=== PATIENT | female | born 1960 | race Caucasian/White ===

== ENCOUNTER 2016-03-03 12:42 | Emergency (ER) | payer BC, OTHER ==
[~2016-03-03 12:42] MED LIST: /BUDEAQINH; /PANT40TA PO; ADV500INH INH; ALBUTEROL NEB; CYMB60CA3 PO; LEVALBUTEROL NEB; MOTRIN PO; VICO5TAB PO; fish oil PO; multivitamin PO; relafen PO; singulair PO; vitamin D PO; zyrtec PO
[2016-03-03] MEDS ORDERED: ACETAMINOPHEN 325 MG TAB As Ordered ONE (13:33)
--- NOTE | 2016-03-03 14:03 | REP ---
4 view right knee series, 03/03/16 Indication: trauma Findings: The lateral view of the right knee was obtained in the flexion. There is mild genu varus deformity. Bony exostosis is noted off the medial aspect of the proximal fibular shaft consistent with osteochondroma. The joint spaces are maintained. There is no acute fracture or dislocation. Impression 1. No acute fracture or dislocation within the right knee. Mild genu varus deformity 2. Bony exostosis of the medial superior fibular shaft is most compatible with an osteochondroma . I Signed by Chacha Davis MD 03/03/2016 01:54 P
--- NOTE | 2016-03-03 14:12 | REP ---
RIGHT ANKLE SERIES, FOUR VIEW EXAM, 03/03/2016: FINDINGS: Transversely oriented avulsion fracture noted of the inferior aspect of the medial malleolus with some callus formation, indicating that this may be a subacute to old fracture with nonunion. There is some benign callus formation within the distal fibular shaft, most compatible with an old healed fracture. There are some dystrophic round calcifications in the medial mortise joint and a single corticated 6 mm calcific fragment in the posterior ankle joint. There is a small plantar calcaneal spur. IMPRESSION: Transverse avulsion fracture of the inferior malleolus appears subacute to old with some callus formation and nonunion. Additionally, there is some benign cortical thickening within the distal fibular shaft, most compatible with an old healed fracture. Small round dystrophic calcifications or intra-articular loose bodies within the medial mortise joint and the posterior ankle joint. Signed by Chacha Davis MD 03/04/2016 07:46 P
--- NOTE | 2016-03-03 14:31 | EDDOCDS ---
Nurse's Notes [facility] Name: Elsie Benjamin Age: 55 yrs Sex: Female : 1960 Arrival Date: 03/03/2016 Time: 12:42 Bed I10 / 23 Private MD: Azael Patel Diagnosis: Fall on same level from slipping, tripping and stumbling with subsequent striking against object;Other specific joint derangements of right ankle, not elsewhere classified;Contusion of right shoulder Presentation: 03/03 12:47 Presenting complaint: Patient states: stepped onto TV cord causing her to twist right dy ankle then land on right side. complaining of right side pain. Adult Sepsis Screening: The patient does not have new or worsening altered mentation. Patient's respiratory rate is less than 22. Systolic blood pressure is greater than 100. Patient has a qSOFA score of 0- Negative Sepsis Screen. Suicide/Homicide risk assessment- the patient denies having any suicidal and/or homicidal ideations and does not present with any other emotional, behavioral or mental health complaints. Status: Patient is not a director of cardiopulmonary services or dependent. Transition of care: patient was not received from another setting of care. 12:47 Acuity: NA Level 4 dy 12:47 Method Of Arrival: Walkin/Carried/Asstd dy Triage Assessment: 12:53 General: Appears uncomfortable. Pain: Location: right side of body; right ankle. HIV dy screening NA for this visit Offered previously. Musculoskeletal: Circulation, motion, and sensation intact. 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 Vitamin B-12 1,000 mcg Oral lozg 2. multivitamin Oral tab 1 tablet daily 3. Fish Oil 1,000 mg Oral cap 4. Vitamin D Oral 5000 unit daily 5. Calcium Petites 200 (500)-400 mg-unit oral cap 6. Advair Diskus 250-50 mcg/dose Inhl dsdv 1 puff 2 times per day 7. QNASL 80 mcg/actuation nasal HFAA 2 sprays once daily 8. Cymbalta 60 mg Oral cpDR 1 cap nightly 9. Protonix 40 mg Oral TbEC 1 tab once daily 10. Singulair 10 mg Oral tab 1 tab once daily 11. Zyrtec 10 mg Oral tab 1 tab once daily 12. magnesium 400 mg oral tab twice a day 13. cefdinir 300 mg Oral cap 1 cap every 12 hours 14. Mucinex 600 mg oral Ta12 1 tab every 12 hours - PMHx: Alcoholism; Asthma; chronic pain; - PSHx: Cholecystectomy; Tubal ligation; Breast biopsy- Right; Sinus Surgery; Adenoidectomy; Cesearean Section; Hysterectomy; Gastric Bypass; - Social history: Smoking status: Patient states was never smoker of tobacco. No barriers to communication noted, The patient speaks fluent Spanish, Speaks appropriately for age. - Family history: Not pertinent. - : The pt / caregiver states he / she is not on anticoagulants. Home medication list is obtained from the patient. - Exposure Risk Screening:: None identified. Screenin:43 Infection Control. cmb 13:38 Screening information is obtained from the patient. Fall risk: No risks identified. ck1 Assistance ADL's: requires no assistance with activities of daily living. Abuse/DV Screen: The patient / caregiver reports he/she is: not in a situation that causes fear, pain or injury. Nutritional screening: No deficits noted. Advance Directives: Currently, there is no health care proxy. home support is adequate. Assessment: 13:37 General: Appears in no apparent distress, comfortable, Behavior is appropriate for age, ck1 cooperative. Pain: Location: right ankle Pain currently is 4 out of 10 on a pain scale. Derm: Skin is intact, is healthy with good turgor, Skin is pink, warm & dry. Musculoskeletal: Circulation, motion, and sensation intact Range of motion intact in all extremities. 14:25 General: Appears in no apparent distress, Behavior is appropriate for age, cooperative. srm Musculoskeletal: Circulation, motion, and sensation intact Capillary refill < 3 seconds in right toes. Vital Signs: 12:43 Pulse 75; Resp 18; Temp 98.5(O); Pulse Ox 98% ; Weight 98.88 kg (R); Height 5 ft. 2 in. cmb (157.48 cm) (R); Pain 5/10; 14:26 BP 117 / 79; Pulse 75; Resp 18; Temp 97.9(O); Pulse Ox 97% on R/A; Pain 5/10; jrd 12:43 Body Mass Index 39.87 (98.88 kg, 157.48 cm) cmb 12:43 PT REQUEST MANUAL BP cmb Vitals: 12:43 Log In Time: March 03, 2016 at 12:37. cmb ED Course: 12:43 Patient visited by Racheal Trammell. cmb 12:43 Azael Patel MD is Private Physician. cmb 12:43 Patient moved to Waiting cmb 12:46 Patient moved to Pre RCE cmb 12:48 Triage Initiated dy 13:02 Tyrell Castañeda FNP is PHCP. ke 13:02 Patient visited by Tyrell Castañeda FNP. ke 13:02 Patient visited by Tyrell Castañeda FNP. ke 13:02 Patient moved to Triage 1 rs6 13:10 Patient moved to I10 / 23 rs6 13:33 Patient visited by Tyrell Castañeda FNP. ke 13:38 The patient / caregiver is instructed regarding the plan of care and ED course. ck1 14:02 Azael Patel MD is Referral Physician. ke 14:11 Knee, Complete Returned. EDMS 14:25 No IV's were initiated during this patient's visit. No procedures done that require srm assistance. Air stirrup applied to right ankle Patient with positive distal sensation and brisk distal capillary refill after application. 14:26 Patient visited by Sukh Beckham PCA. yokasta Administered Medications: 13:37 Drug: Acetaminophen 975 mg [acetaminophen 325 mg tablet (3 tabs)] Route: PO; ck1 Order Results: Radiology Order: Knee, Complete Test: Knee, Complete REASON FOR EXAMINATION: Trauma; 4 view right knee series, 03/03/16; ; Indication: trauma; ; ; ; Findings:; ; The lateral view of the right knee was obtained in the flexion. There is mild; genu varus deformity. Bony exostosis is noted off the medial aspect of the; proximal fibular shaft consistent with osteochondroma. The joint spaces are; maintained. There is no acute fracture or dislocation.; ; Impression; 1. No acute fracture or dislocation within the right knee. Mild genu varus; deformity; 2. Bony exostosis of the medial superior fibular shaft is most compatible with; an osteochondroma .; ; I; ; ; Signed by; Chacha Davis MD 03/03/2016 01:54 P; Outcome: 14:03 Discharge ordered by Provider. nakia 14:25 Discharge Assessment: Patient awake, alert and oriented x 3. No cognitive and/or srm functional deficits noted. Patient verbalized understanding of disposition instructions. 14:26 Discharge Assessment: Patient awake, alert and oriented x 3. No cognitive and/or srm functional deficits noted. Patient verbalized understanding of disposition instructions. patient administered narcotics - no. The following High Risk Discharge criteria are identified: None. Discharged to home ambulatory. Condition: good Condition: stable. Discharge instructions given to patient, Instructed on discharge instructions, follow up and referral plans. Rest, Ice, Compression and Elevation. Demonstrated understanding of instructions, medications, Pt was receptive of discharge instructions/ teaching. Work note provided to patient. No special radiology studies were completed. Property sent home with patient. 14:29 Patient left the ED. srm Signatures: Dispatcher [employer] EDAnika Erickson RN RN srm Youngs, David, RN Tyrell Eckert, SAP PROJECT MANAGER SAP PROJECT MANAGER Megan ValdovinosRN RN Racheal Ham Joseph, MOTOR TUNE UP SPECIALIST MOTOR TUNE UP SPECIALIST jrd Latia Welch, MOTOR TUNE UP SPECIALIST MOTOR TUNE UP SPECIALIST rs6 RENAN
--- NOTE | 2016-03-03 14:31 | EDDOCDS ---
Physician Documentation [facility] Name: Elsie Benjamin Age: 55 yrs Sex: Female : 1960 Arrival Date: 03/03/2016 Time: 12:42 Bed I10 / 23 Private MD: Azael Patel Disposition: 03/03/16 14:03 Discharged to Home/Self Care. Impression: Fall on same level from slipping, tripping and stumbling with subsequent striking against object, Other specific joint derangements of right ankle, not elsewhere classified, Contusion of right shoulder. - Condition is Stable. - Discharge Instructions: Ankle Sprain, Shoulder Pain, Stirrup Ankle Brace. - Medication Reconciliation, Work Release Form - 1 day, Local Pharmacy Hours form. - Follow up: Azael Patel MD; When: 4 - 5 days; Reason: Recheck today's complaints, Continuance of care. - Problem is an ongoing problem. - Symptoms are unchanged. - Notes: ice 20 min an hour Historical: - Allergies: SULFA (SULFONAMIDES); Afrin; Marcaine 0.5%; Soy; Latex; - Home Meds: 1. Vitamin B-12 1,000 mcg Oral lozg 2. multivitamin Oral tab 1 tablet daily 3. Fish Oil 1,000 mg Oral cap 4. Vitamin D Oral 5000 unit daily 5. Calcium Petites 200 (500)-400 mg-unit oral cap 6. Advair Diskus 250-50 mcg/dose Inhl dsdv 1 puff 2 times per day 7. QNASL 80 mcg/actuation nasal HFAA 2 sprays once daily 8. Cymbalta 60 mg Oral cpDR 1 cap nightly 9. Protonix 40 mg Oral TbEC 1 tab once daily 10. Singulair 10 mg Oral tab 1 tab once daily 11. Zyrtec 10 mg Oral tab 1 tab once daily 12. magnesium 400 mg oral tab twice a day 13. cefdinir 300 mg Oral cap 1 cap every 12 hours 14. Mucinex 600 mg oral Ta12 1 tab every 12 hours - PMHx: Alcoholism; Asthma; chronic pain; - PSHx: Cholecystectomy; Tubal ligation; Breast biopsy- Right; Sinus Surgery; Adenoidectomy; Cesearean Section; Hysterectomy; Gastric Bypass; - Social history: Smoking status: Patient states was never smoker of tobacco. No barriers to communication noted, The patient speaks fluent Urdu, Speaks appropriately for age. - Family history: Not pertinent. - : The pt / caregiver states he / she is not on anticoagulants. Home medication list is obtained from the patient. - Exposure Risk Screening:: None identified. 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 2 in. (157.48 cm) (R); Pain 5/10; 14:26 BP 117 / 79; Pulse 75; Resp 18; Temp 97.9(O); Pulse Ox 97% on R/A; Pain 5/10; jrd 12:43 Body Mass Index 39.87 (98.88 kg, 157.48 cm) cmb 12:43 PT REQUEST MANUAL BP cmb MDM: 13:10 Acetaminophen Tablet 975 mg PO once ordered. ke 13:10 Ankle, Complete Ordered. EDMS 13:12 Shoulder, Complete Ordered. EDMS 13:12 Knee, Complete Ordered. EDMS 13:36 Financial registration complete. lg 14:02 Apply Air Cast to Patient. ordered. ke Administered Medications: 13:37 Drug: Acetaminophen 975 mg [acetaminophen 325 mg tablet (3 tabs)] Route: PO; ck1 Signatures: Dispatcher [employer] EDMS Anika Cruz, RN Dahiana Torres, Reg Reg Nasir Acosta RN Tyrell Eckert, HOT AIR FURNACE INSTALLER AND REPAIRER HOT AIR FURNACE INSTALLER AND REPAIRER Megan Valdovinos RN RN ck1 MTDD
--- NOTE | 2016-03-04 17:14 | REP ---
Three-view right shoulder series one 03/03/16 Indication: Trauma Findings: Mild hypertrophic changes are noted at acromioclavicular joint. There is a small subacromial spur. There is no acute fracture, subluxation, or dislocation within the right shoulder. Visualized portions of the clavicle as well as scapula are intact. Impression: Right shoulder without acute fracture, subluxation, or dislocation. Mild hypertrophic changes at acromioclavicular joint. Small subacromial spur. Signed by Chacha Davis MD 03/04/2016 05:06 P
--- NOTE | 2016-03-05 15:30 | EDDOCDS ---
Nurse's Notes [facility] Name: lEsie Benjamin Age: 55 yrs Sex: Female : 1960 Arrival Date: 03/03/2016 Time: 12:42 Bed I10 / 23 Private MD: Azael Patel Diagnosis: Fall on same level from slipping, tripping and stumbling with subsequent striking against object;Other specific joint derangements of right ankle, not elsewhere classified;Contusion of right shoulder Presentation: 03/03 12:47 Presenting complaint: Patient states: stepped onto TV cord causing her to twist right dy ankle then land on right side. complaining of right side pain. Adult Sepsis Screening: The patient does not have new or worsening altered mentation. Patient's respiratory rate is less than 22. Systolic blood pressure is greater than 100. Patient has a qSOFA score of 0- Negative Sepsis Screen. Suicide/Homicide risk assessment- the patient denies having any suicidal and/or homicidal ideations and does not present with any other emotional, behavioral or mental health complaints. 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 Transition of care: patient was not received from another setting of care. 12:47 Acuity: NA Level 4 dy 12:47 Method Of Arrival: Walkin/Carried/Asstd dy Triage Assessment: 12:53 General: Appears uncomfortable. Pain: Location: right side of body; right ankle. HIV dy screening NA for this visit Offered previously. Musculoskeletal: Circulation, motion, and sensation intact. 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 Vitamin B-12 1,000 mcg Oral lozg 2. multivitamin Oral tab 1 tablet daily 3. Fish Oil 1,000 mg Oral cap 4. Vitamin D Oral 5000 unit daily 5. Calcium Petites 200 (500)-400 mg-unit oral cap 6. Advair Diskus 250-50 mcg/dose Inhl dsdv 1 puff 2 times per day 7. QNASL 80 mcg/actuation nasal HFAA 2 sprays once daily 8. Cymbalta 60 mg Oral cpDR 1 cap nightly 9. Protonix 40 mg Oral TbEC 1 tab once daily 10. Singulair 10 mg Oral tab 1 tab once daily 11. Zyrtec 10 mg Oral tab 1 tab once daily 12. magnesium 400 mg oral tab twice a day 13. cefdinir 300 mg Oral cap 1 cap every 12 hours 14. Mucinex 600 mg oral Ta12 1 tab every 12 hours - PMHx: Alcoholism; Asthma; chronic pain; - PSHx: Cholecystectomy; Tubal ligation; Breast biopsy- Right; Sinus Surgery; Adenoidectomy; Cesearean Section; Hysterectomy; Gastric Bypass; - Social history: Smoking status: Patient states was never smoker of tobacco. No barriers to communication noted, The patient speaks fluent British, Speaks appropriately for age. - Family history: Not pertinent. - : The pt / caregiver states he / she is not on anticoagulants. Home medication list is obtained from the patient. - Exposure Risk Screening:: None identified. Screenin:43 Infection Control. cmb 13:38 Screening information is obtained from the patient. Fall risk: No risks identified. ck1 Assistance ADL's: requires no assistance with activities of daily living. Abuse/DV Screen: The patient / caregiver reports he/she is: not in a situation that causes fear, pain or injury. Nutritional screening: No deficits noted. Advance Directives: Currently, there is no health care proxy. home support is adequate. Assessment: 13:37 General: Appears in no apparent distress, comfortable, Behavior is appropriate for age, ck1 cooperative. Pain: Location: right ankle Pain currently is 4 out of 10 on a pain scale. Derm: Skin is intact, is healthy with good turgor, Skin is pink, warm & dry. Musculoskeletal: Circulation, motion, and sensation intact Range of motion intact in all extremities. 14:25 General: Appears in no apparent distress, Behavior is appropriate for age, cooperative. srm Musculoskeletal: Circulation, motion, and sensation intact Capillary refill < 3 seconds in right toes. Vital Signs: 12:43 Pulse 75; Resp 18; Temp 98.5(O); Pulse Ox 98% ; Weight 98.88 kg (R); Height 5 ft. 2 in. cmb (157.48 cm) (R); Pain 5/10; 14:26 BP 117 / 79; Pulse 75; Resp 18; Temp 97.9(O); Pulse Ox 97% on R/A; Pain 5/10; jrd 12:43 Body Mass Index 39.87 (98.88 kg, 157.48 cm) cmb 12:43 PT REQUEST MANUAL BP cmb Vitals: 12:43 Log In Time: March 03, 2016 at 12:37. cmb ED Course: 12:43 Patient visited by Racheal Trammell. cmb 12:43 Azael Patel MD is Private Physician. cmb 12:43 Patient moved to Waiting cmb 12:46 Patient moved to Pre RCE cmb 12:48 Triage Initiated dy 13:02 Tyrell Castañeda FNP is PHCP. ke 13:02 Patient visited by Tyrell Castañeda FNP. ke 13:02 Patient visited by Tyrell Castañeda FNP. ke 13:02 Patient moved to Triage 1 rs6 13:10 Patient moved to I10 / 23 rs6 13:33 Patient visited by Tyrell Castañeda FNP. ke 13:38 The patient / caregiver is instructed regarding the plan of care and ED course. ck1 14:02 Azael Patel MD is Referral Physician. ke 14:11 Knee, Complete Returned. EDMS 14:25 No IV's were initiated during this patient's visit. No procedures done that require srm assistance. Air stirrup applied to right ankle Patient with positive distal sensation and brisk distal capillary refill after application. 14:26 Patient visited by Sukh Beckham PCA. jrd 15:10 Ankle, Complete Returned. EDMS 15:13 [facility] Payment Agreement was scanned into [employer] and attached to record. lg 15:15 T-Sheet-- Draft Copy was scanned into [employer] and attached to record. gb 03/04 17:33 Shoulder, Complete Returned. EDMS Administered Medications: 03/03 13:37 Drug: Acetaminophen 975 mg [acetaminophen 325 mg tablet (3 tabs)] Route: PO; ck1 Order Results: Radiology Order: Ankle, Complete Test: Ankle, Complete REASON FOR EXAMINATION: Trauma; RIGHT ANKLE SERIES, FOUR VIEW EXAM, 03/03/2016:; ; FINDINGS: Transversely oriented avulsion fracture noted of the inferior aspect; of the medial malleolus with some callus formation, indicating that this may be a; subacute to old fracture with nonunion. There is some benign callus formation; within the distal fibular shaft, most compatible with an old healed fracture.; There are some dystrophic round calcifications in the medial mortise joint and a; single corticated 6 mm calcific fragment in the posterior ankle joint. There is; a small plantar calcaneal spur.; ; IMPRESSION:; ; Transverse avulsion fracture of the inferior malleolus appears subacute to old; with some callus formation and nonunion. Additionally, there is some benign; cortical thickening within the distal fibular shaft, most compatible with an old; healed fracture.; ; Small round dystrophic calcifications or intra-articular loose bodies within the; medial mortise joint and the posterior ankle joint.; ; ; Signed by; Chacha Davis MD 03/04/2016 07:46 P; Radiology Order: Shoulder, Complete Test: Shoulder, Complete REASON FOR EXAMINATION: Trauma; Three-view right shoulder series one 03/03/16; ; Indication: Trauma; ; Findings: Mild hypertrophic changes are noted at acromioclavicular joint. There; is a small subacromial spur. There is no acute fracture, subluxation, or; dislocation within the right shoulder. Visualized portions of the clavicle as; well as scapula are intact.; ; Impression:; ; Right shoulder without acute fracture, subluxation, or dislocation.; ; Mild hypertrophic changes at acromioclavicular joint. Small subacromial spur.; ; ; ; ; ; ; Signed by; Chacha Davis MD 03/04/2016 05:06 P; Radiology Order: Knee, Complete Test: Knee, Complete REASON FOR EXAMINATION: Trauma; 4 view right knee series, 03/03/16; ; Indication: trauma; ; ; ; Findings:; ; The lateral view of the right knee was obtained in the flexion. There is mild; genu varus deformity. Bony exostosis is noted off the medial aspect of the; proximal fibular shaft consistent with osteochondroma. The joint spaces are; maintained. There is no acute fracture or dislocation.; ; Impression; 1. No acute fracture or dislocation within the right knee. Mild genu varus; deformity; 2. Bony exostosis of the medial superior fibular shaft is most compatible with; an osteochondroma .; ; I; ; ; Signed by; Chacha Davis MD 03/03/2016 01:54 P; Outcome: 14:03 Discharge ordered by Provider. nakia 14:25 Discharge Assessment: Patient awake, alert and oriented x 3. No cognitive and/or srm functional deficits noted. Patient verbalized understanding of disposition instructions. 14:26 Discharge Assessment: Patient awake, alert and oriented x 3. No cognitive and/or srm functional deficits noted. Patient verbalized understanding of disposition instructions. patient administered narcotics - no. The following High Risk Discharge criteria are identified: None. Discharged to home ambulatory. Condition: good Condition: stable. Discharge instructions given to patient, Instructed on discharge instructions, follow up and referral plans. Rest, Ice, Compression and Elevation. Demonstrated understanding of instructions, medications, Pt was receptive of discharge instructions/ teaching. Work note provided to patient. No special radiology studies were completed. Property sent home with patient. 14:29 Patient left the ED. srm Signatures: Dispatcher [employer] EDMS Anika Cruz, RN RN srm Loyda Kendrick, Reg Reg gb Dahiana Downing, Reg Reg lg Nasir Kimble, RN Tyrell Eckert, COLON AND RECTAL SURGEON COLON AND RECTAL SURGEON Megan Valdovinos RN RN ck1 Racheal Trammell cmSukh Jacbo, TAX PROCESSOR TAX PROCESSOR jrd Latia Welch, TAX PROCESSOR TAX PROCESSOR rs6 Chart Complete MTDAlissa
--- NOTE | 2016-03-05 15:30 | EDDOCDS ---
Physician Documentation [facility] Name: Elsie Benjamin Age: 55 yrs Sex: Female : 1960 Arrival Date: 03/03/2016 Time: 12:42 Bed I10 / 23 Private MD: Azael Patel Disposition: 03/03/16 14:03 Discharged to Home/Self Care. Impression: Fall on same level from slipping, tripping and stumbling with subsequent striking against object, Other specific joint derangements of right ankle, not elsewhere classified, Contusion of right shoulder. - Condition is Stable. - Discharge Instructions: Ankle Sprain, Shoulder Pain, Stirrup Ankle Brace. - Medication Reconciliation, Work Release Form - 1 day, Local Pharmacy Hours form. - Follow up: Azael Patel MD; When: 4 - 5 days; Reason: Recheck today's complaints, Continuance of care. - Problem is an ongoing problem. - Symptoms are unchanged. - Notes: ice 20 min an hour Historical: - Allergies: SULFA (SULFONAMIDES); Afrin; Marcaine 0.5%; Soy; Latex; - Home Meds: 1. Vitamin B-12 1,000 mcg Oral lozg 2. multivitamin Oral tab 1 tablet daily 3. Fish Oil 1,000 mg Oral cap 4. Vitamin D Oral 5000 unit daily 5. Calcium Petites 200 (500)-400 mg-unit oral cap 6. Advair Diskus 250-50 mcg/dose Inhl dsdv 1 puff 2 times per day 7. QNASL 80 mcg/actuation nasal HFAA 2 sprays once daily 8. Cymbalta 60 mg Oral cpDR 1 cap nightly 9. Protonix 40 mg Oral TbEC 1 tab once daily 10. Singulair 10 mg Oral tab 1 tab once daily 11. Zyrtec 10 mg Oral tab 1 tab once daily 12. magnesium 400 mg oral tab twice a day 13. cefdinir 300 mg Oral cap 1 cap every 12 hours 14. Mucinex 600 mg oral Ta12 1 tab every 12 hours - PMHx: Alcoholism; Asthma; chronic pain; - PSHx: Cholecystectomy; Tubal ligation; Breast biopsy- Right; Sinus Surgery; Adenoidectomy; Cesearean Section; Hysterectomy; Gastric Bypass; - Social history: Smoking status: Patient states was never smoker of tobacco. No barriers to communication noted, The patient speaks fluent Lao, Speaks appropriately for age. - Family history: Not pertinent. - : The pt / caregiver states he / she is not on anticoagulants. Home medication list is obtained from the patient. - Exposure Risk Screening:: None identified. 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 2 in. (157.48 cm) (R); Pain 5/10; 14:26 BP 117 / 79; Pulse 75; Resp 18; Temp 97.9(O); Pulse Ox 97% on R/A; Pain 5/10; jrd 12:43 Body Mass Index 39.87 (98.88 kg, 157.48 cm) cmb 12:43 PT REQUEST MANUAL BP cmb MDM: 13:10 Acetaminophen Tablet 975 mg PO once ordered. ke 13:10 Ankle, Complete Ordered. EDMS 13:12 Shoulder, Complete Ordered. EDMS 13:12 Knee, Complete Ordered. EDMS 13:36 Financial registration complete. lg 14:02 Apply Air Cast to Patient. ordered. ke 15:13 [facility] Payment Agreement was scanned into [employer] and attached to record. lg 15:15 T-Sheet-- Draft Copy was scanned into [employer] and attached to record. gb Administered Medications: 13:37 Drug: Acetaminophen 975 mg [acetaminophen 325 mg tablet (3 tabs)] Route: PO; ck1 Signatures: Dispatcher MedHost EDMS Anika Cruz, RN RN [facility] Loyda Kendrick, Reg Reg gb Dahiana Downing, Reg Reg lg Nasir Kimble RN RN dy Elsner, Karl, FNP FNP ke Kim-Ashcraft, ConnieRN RN ck1 The chart was reviewed and I authenticate all verbal orders and agree with the evaluation and treatment provided.Attachments: 15:13 [facility] Payment Agreement lg 15:15 T-Sheet-- Draft Copy gb Chart Complete MTDD
--- NOTE | 2016-03-05 15:30 | EDDOCDS ---
Physician Documentation [facility] Name: Elsie Benjamin Age: 55 yrs Sex: Female : 1960 Arrival Date: 03/03/2016 Time: 12:42 Bed I10 / 23 Private MD: Azael Patel Disposition: 03/03/16 14:03 Discharged to Home/Self Care. Impression: Fall on same level from slipping, tripping and stumbling with subsequent striking against object, Other specific joint derangements of right ankle, not elsewhere classified, Contusion of right shoulder. - Condition is Stable. - Discharge Instructions: Ankle Sprain, Shoulder Pain, Stirrup Ankle Brace. - Medication Reconciliation, Work Release Form - 1 day, Local Pharmacy Hours form. - Follow up: Azael Patel MD; When: 4 - 5 days; Reason: Recheck today's complaints, Continuance of care. - Problem is an ongoing problem. - Symptoms are unchanged. - Notes: ice 20 min an hour Historical: - Allergies: SULFA (SULFONAMIDES); Afrin; Marcaine 0.5%; Soy; Latex; - Home Meds: 1. Vitamin B-12 1,000 mcg Oral lozg 2. multivitamin Oral tab 1 tablet daily 3. Fish Oil 1,000 mg Oral cap 4. Vitamin D Oral 5000 unit daily 5. Calcium Petites 200 (500)-400 mg-unit oral cap 6. Advair Diskus 250-50 mcg/dose Inhl dsdv 1 puff 2 times per day 7. QNASL 80 mcg/actuation nasal HFAA 2 sprays once daily 8. Cymbalta 60 mg Oral cpDR 1 cap nightly 9. Protonix 40 mg Oral TbEC 1 tab once daily 10. Singulair 10 mg Oral tab 1 tab once daily 11. Zyrtec 10 mg Oral tab 1 tab once daily 12. magnesium 400 mg oral tab twice a day 13. cefdinir 300 mg Oral cap 1 cap every 12 hours 14. Mucinex 600 mg oral Ta12 1 tab every 12 hours - PMHx: Alcoholism; Asthma; chronic pain; - PSHx: Cholecystectomy; Tubal ligation; Breast biopsy- Right; Sinus Surgery; Adenoidectomy; Cesearean Section; Hysterectomy; Gastric Bypass; - Social history: Smoking status: Patient states was never smoker of tobacco. No barriers to communication noted, The patient speaks fluent Hungarian, Speaks appropriately for age. - Family history: Not pertinent. - : The pt / caregiver states he / she is not on anticoagulants. Home medication list is obtained from the patient. - Exposure Risk Screening:: None identified. 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 2 in. (157.48 cm) (R); Pain 5/10; 14:26 BP 117 / 79; Pulse 75; Resp 18; Temp 97.9(O); Pulse Ox 97% on R/A; Pain 5/10; jrd 12:43 Body Mass Index 39.87 (98.88 kg, 157.48 cm) cmb 12:43 PT REQUEST MANUAL BP cmb MDM: 13:10 Acetaminophen Tablet 975 mg PO once ordered. ke 13:10 Ankle, Complete Ordered. EDMS 13:12 Shoulder, Complete Ordered. EDMS 13:12 Knee, Complete Ordered. EDMS 13:36 Financial registration complete. lg 14:02 Apply Air Cast to Patient. ordered. ke 15:13 [facility] Payment Agreement was scanned into [employer] and attached to record. lg 15:15 T-Sheet-- Draft Copy was scanned into [employer] and attached to record. gb Administered Medications: 13:37 Drug: Acetaminophen 975 mg [acetaminophen 325 mg tablet (3 tabs)] Route: PO; ck1 Signatures: Dispatcher MedHost EDMS Anika Cruz, RN RN [facility] Loyda Kendrick, Reg Reg gb Dahiana Downing, Reg Reg lg Nasir Kimble RN RN dy Elsner, Karl, FNP FNP ke Kim-Ashcraft, ConnieRN RN ck1 The chart was reviewed and I authenticate all verbal orders and agree with the evaluation and treatment provided.Attachments: 15:13 [facility] Payment Agreement lg 15:15 T-Sheet-- Draft Copy gb Chart Complete MTDD
--- NOTE | 2016-03-09 20:45 | EDDOCDS ---
Nurse's Notes [facility] Name: Elsie Benjamin Age: 55 yrs Sex: Female : 1960 Arrival Date: 03/03/2016 Time: 12:42 Bed I10 / 23 Private MD: Azael Patel Diagnosis: Fall on same level from slipping, tripping and stumbling with subsequent striking against object;Other specific joint derangements of right ankle, not elsewhere classified;Contusion of right shoulder Presentation: 03/03 12:47 Presenting complaint: Patient states: stepped onto TV cord causing her to twist right dy ankle then land on right side. complaining of right side pain. Adult Sepsis Screening: The patient does not have new or worsening altered mentation. Patient's respiratory rate is less than 22. Systolic blood pressure is greater than 100. Patient has a qSOFA score of 0- Negative Sepsis Screen. Suicide/Homicide risk assessment- the patient denies having any suicidal and/or homicidal ideations and does not present with any other emotional, behavioral or mental health complaints. Status: Patient is not a room service runner or dependent. Transition of care: patient was not received from another setting of care. 12:47 Acuity: NA Level 4 dy 12:47 Method Of Arrival: Walkin/Carried/Asstd dy Triage Assessment: 12:53 General: Appears uncomfortable. Pain: Location: right side of body; right ankle. HIV dy screening NA for this visit Offered previously. Musculoskeletal: Circulation, motion, and sensation intact. 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 Vitamin B-12 1,000 mcg Oral lozg 2. multivitamin Oral tab 1 tablet daily 3. Fish Oil 1,000 mg Oral cap 4. Vitamin D Oral 5000 unit daily 5. Calcium Petites 200 (500)-400 mg-unit oral cap 6. Advair Diskus 250-50 mcg/dose Inhl dsdv 1 puff 2 times per day 7. QNASL 80 mcg/actuation nasal HFAA 2 sprays once daily 8. Cymbalta 60 mg Oral cpDR 1 cap nightly 9. Protonix 40 mg Oral TbEC 1 tab once daily 10. Singulair 10 mg Oral tab 1 tab once daily 11. Zyrtec 10 mg Oral tab 1 tab once daily 12. magnesium 400 mg oral tab twice a day 13. cefdinir 300 mg Oral cap 1 cap every 12 hours 14. Mucinex 600 mg oral Ta12 1 tab every 12 hours - PMHx: Alcoholism; Asthma; chronic pain; - PSHx: Cholecystectomy; Tubal ligation; Breast biopsy- Right; Sinus Surgery; Adenoidectomy; Cesearean Section; Hysterectomy; Gastric Bypass; - Social history: Smoking status: Patient states was never smoker of tobacco. No barriers to communication noted, The patient speaks fluent Tunisian, Speaks appropriately for age. - Family history: Not pertinent. - : The pt / caregiver states he / she is not on anticoagulants. Home medication list is obtained from the patient. - Exposure Risk Screening:: None identified. Screenin:43 Infection Control. cmb 13:38 Screening information is obtained from the patient. Fall risk: No risks identified. ck1 Assistance ADL's: requires no assistance with activities of daily living. Abuse/DV Screen: The patient / caregiver reports he/she is: not in a situation that causes fear, pain or injury. Nutritional screening: No deficits noted. Advance Directives: Currently, there is no health care proxy. home support is adequate. Assessment: 13:37 General: Appears in no apparent distress, comfortable, Behavior is appropriate for age, ck1 cooperative. Pain: Location: right ankle Pain currently is 4 out of 10 on a pain scale. Derm: Skin is intact, is healthy with good turgor, Skin is pink, warm & dry. Musculoskeletal: Circulation, motion, and sensation intact Range of motion intact in all extremities. 14:25 General: Appears in no apparent distress, Behavior is appropriate for age, cooperative. srm Musculoskeletal: Circulation, motion, and sensation intact Capillary refill < 3 seconds in right toes. Vital Signs: 12:43 Pulse 75; Resp 18; Temp 98.5(O); Pulse Ox 98% ; Weight 98.88 kg (R); Height 5 ft. 2 in. cmb (157.48 cm) (R); Pain 5/10; 14:26 BP 117 / 79; Pulse 75; Resp 18; Temp 97.9(O); Pulse Ox 97% on R/A; Pain 5/10; jrd 12:43 Body Mass Index 39.87 (98.88 kg, 157.48 cm) cmb 12:43 PT REQUEST MANUAL BP cmb Vitals: 12:43 Log In Time: March 03, 2016 at 12:37. cmb ED Course: 12:43 Patient visited by Racheal Trammell. cmb 12:43 Azael Patel MD is Private Physician. cmb 12:43 Patient moved to Waiting cmb 12:46 Patient moved to Pre RCE cmb 12:48 Triage Initiated dy 13:02 Tyrell Castañeda FNP is PHCP. ke 13:02 Patient visited by Tyrell Castañeda FNP. ke 13:02 Patient visited by Tyrell Castañeda FNP. ke 13:02 Patient moved to Triage 1 rs6 13:10 Patient moved to I10 / 23 rs6 13:33 Patient visited by Tyrell Castañeda FNP. ke 13:38 The patient / caregiver is instructed regarding the plan of care and ED course. ck1 14:02 Azael Patel MD is Referral Physician. ke 14:11 Knee, Complete Returned. EDMS 14:25 No IV's were initiated during this patient's visit. No procedures done that require srm assistance. Air stirrup applied to right ankle Patient with positive distal sensation and brisk distal capillary refill after application. 14:26 Patient visited by Sukh Beckham PCA. jrd 15:10 Ankle, Complete Returned. EDMS 15:13 [facility] Payment Agreement was scanned into [employer] and attached to record. lg 15:15 T-Sheet-- Draft Copy was scanned into [employer] and attached to record. gb 03/04 17:33 Shoulder, Complete Returned. EDMS Administered Medications: 03/03 13:37 Drug: Acetaminophen 975 mg [acetaminophen 325 mg tablet (3 tabs)] Route: PO; ck1 Order Results: Radiology Order: Ankle, Complete Test: Ankle, Complete REASON FOR EXAMINATION: Trauma; RIGHT ANKLE SERIES, FOUR VIEW EXAM, 03/03/2016:; ; FINDINGS: Transversely oriented avulsion fracture noted of the inferior aspect; of the medial malleolus with some callus formation, indicating that this may be a; subacute to old fracture with nonunion. There is some benign callus formation; within the distal fibular shaft, most compatible with an old healed fracture.; There are some dystrophic round calcifications in the medial mortise joint and a; single corticated 6 mm calcific fragment in the posterior ankle joint. There is; a small plantar calcaneal spur.; ; IMPRESSION:; ; Transverse avulsion fracture of the inferior malleolus appears subacute to old; with some callus formation and nonunion. Additionally, there is some benign; cortical thickening within the distal fibular shaft, most compatible with an old; healed fracture.; ; Small round dystrophic calcifications or intra-articular loose bodies within the; medial mortise joint and the posterior ankle joint.; ; ; Signed by; Chacha Davis MD 03/04/2016 07:46 P; Radiology Order: Shoulder, Complete Test: Shoulder, Complete REASON FOR EXAMINATION: Trauma; Three-view right shoulder series one 03/03/16; ; Indication: Trauma; ; Findings: Mild hypertrophic changes are noted at acromioclavicular joint. There; is a small subacromial spur. There is no acute fracture, subluxation, or; dislocation within the right shoulder. Visualized portions of the clavicle as; well as scapula are intact.; ; Impression:; ; Right shoulder without acute fracture, subluxation, or dislocation.; ; Mild hypertrophic changes at acromioclavicular joint. Small subacromial spur.; ; ; ; ; ; ; Signed by; Chacha Davis MD 03/04/2016 05:06 P; Radiology Order: Knee, Complete Test: Knee, Complete REASON FOR EXAMINATION: Trauma; 4 view right knee series, 03/03/16; ; Indication: trauma; ; ; ; Findings:; ; The lateral view of the right knee was obtained in the flexion. There is mild; genu varus deformity. Bony exostosis is noted off the medial aspect of the; proximal fibular shaft consistent with osteochondroma. The joint spaces are; maintained. There is no acute fracture or dislocation.; ; Impression; 1. No acute fracture or dislocation within the right knee. Mild genu varus; deformity; 2. Bony exostosis of the medial superior fibular shaft is most compatible with; an osteochondroma .; ; I; ; ; Signed by; Chacha Davis MD 03/03/2016 01:54 P; Outcome: 14:03 Discharge ordered by Provider. nakia 14:25 Discharge Assessment: Patient awake, alert and oriented x 3. No cognitive and/or srm functional deficits noted. Patient verbalized understanding of disposition instructions. 14:26 Discharge Assessment: Patient awake, alert and oriented x 3. No cognitive and/or srm functional deficits noted. Patient verbalized understanding of disposition instructions. patient administered narcotics - no. The following High Risk Discharge criteria are identified: None. Discharged to home ambulatory. Condition: good Condition: stable. Discharge instructions given to patient, Instructed on discharge instructions, follow up and referral plans. Rest, Ice, Compression and Elevation. Demonstrated understanding of instructions, medications, Pt was receptive of discharge instructions/ teaching. Work note provided to patient. No special radiology studies were completed. Property sent home with patient. 14:29 Patient left the ED. srm Signatures: Dispatcher MedHost EDMS Anika Cruz, RN RN Loyda Sanchez, Reg Reg gb Dahiana Downing, Reg Reg lg Nasir Kimble, RN Tyrell Eckert, GUITAR REPAIRER GUITAR REPAIRER Megan Valdovinos RN RN ck1 Racheal Trammell Joseph, PHYSICAL THERAPY TEACHER PHYSICAL THERAPY TEACHER jrd Latia Welch, PHYSICAL THERAPY TEACHER PHYSICAL THERAPY TEACHER rs6 RENAN
--- NOTE | 2016-03-09 20:45 | EDDOCDS ---
Physician Documentation [facility] Name: Elsie Benjamin Age: 55 yrs Sex: Female : 1960 Arrival Date: 03/03/2016 Time: 12:42 Bed I10 / 23 Private MD: Azael Patel Disposition: 03/03/16 14:03 Discharged to Home/Self Care. Impression: Fall on same level from slipping, tripping and stumbling with subsequent striking against object, Other specific joint derangements of right ankle, not elsewhere classified, Contusion of right shoulder. - Condition is Stable. - Discharge Instructions: Ankle Sprain, Shoulder Pain, Stirrup Ankle Brace. - Medication Reconciliation, Work Release Form - 1 day, Local Pharmacy Hours form. - Follow up: Azael Patel MD; When: 4 - 5 days; Reason: Recheck today's complaints, Continuance of care. - Problem is an ongoing problem. - Symptoms are unchanged. - Notes: ice 20 min an hour Historical: - Allergies: SULFA (SULFONAMIDES); Afrin; Marcaine 0.5%; Soy; Latex; - Home Meds: 1. Vitamin B-12 1,000 mcg Oral lozg 2. multivitamin Oral tab 1 tablet daily 3. Fish Oil 1,000 mg Oral cap 4. Vitamin D Oral 5000 unit daily 5. Calcium Petites 200 (500)-400 mg-unit oral cap 6. Advair Diskus 250-50 mcg/dose Inhl dsdv 1 puff 2 times per day 7. QNASL 80 mcg/actuation nasal HFAA 2 sprays once daily 8. Cymbalta 60 mg Oral cpDR 1 cap nightly 9. Protonix 40 mg Oral TbEC 1 tab once daily 10. Singulair 10 mg Oral tab 1 tab once daily 11. Zyrtec 10 mg Oral tab 1 tab once daily 12. magnesium 400 mg oral tab twice a day 13. cefdinir 300 mg Oral cap 1 cap every 12 hours 14. Mucinex 600 mg oral Ta12 1 tab every 12 hours - PMHx: Alcoholism; Asthma; chronic pain; - PSHx: Cholecystectomy; Tubal ligation; Breast biopsy- Right; Sinus Surgery; Adenoidectomy; Cesearean Section; Hysterectomy; Gastric Bypass; - Social history: Smoking status: Patient states was never smoker of tobacco. No barriers to communication noted, The patient speaks fluent Icelandic, Speaks appropriately for age. - Family history: Not pertinent. - : The pt / caregiver states he / she is not on anticoagulants. Home medication list is obtained from the patient. - Exposure Risk Screening:: None identified. 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 2 in. (157.48 cm) (R); Pain 5/10; 14:26 BP 117 / 79; Pulse 75; Resp 18; Temp 97.9(O); Pulse Ox 97% on R/A; Pain 5/10; jrd 12:43 Body Mass Index 39.87 (98.88 kg, 157.48 cm) cmb 12:43 PT REQUEST MANUAL BP cmb MDM: 13:10 Acetaminophen Tablet 975 mg PO once ordered. ke 13:10 Ankle, Complete Ordered. EDMS 13:12 Shoulder, Complete Ordered. EDMS 13:12 Knee, Complete Ordered. EDMS 13:36 Financial registration complete. lg 14:02 Apply Air Cast to Patient. ordered. ke 15:13 [facility] Payment Agreement was scanned into [employer] and attached to record. lg 15:15 T-Sheet-- Draft Copy was scanned into [employer] and attached to record. gb Administered Medications: 13:37 Drug: Acetaminophen 975 mg [acetaminophen 325 mg tablet (3 tabs)] Route: PO; ck1 Addendum: 03/09/2016 20:43 Radiology Callback: Radiology results faxed to primary care physician/provider. dr yana alexander faxed formal report of right ankle film for fu mlg. Signatures: Dispatcher MedHost EDMS Misbah Lopez MD MD ml Michelson, Staci, ANNE MARIE KENNEY [facility] Loyda Kendrick, Reg Reg gb Dahiana Downing, Reg Reg lg Nasir Kimble RN RN dy Elsner, Karl, SEED PELLETER SEED PELLETER Megan ValdovinosRN RN ck1 The chart was reviewed and I authenticate all verbal orders and agree with the evaluation and treatment provided.Attachments: 03/03 15:13 [facility] [place] Agreement lg 15:15 T-Sheet-- Draft Copy gb MTDD
--- NOTE | 2016-03-09 20:45 | EDDOCDS ---
Physician Documentation [facility] Name: Elsie Benjamin Age: 55 yrs Sex: Female : 1960 Arrival Date: 03/03/2016 Time: 12:42 Bed I10 / 23 Private MD: Azael Patel Disposition: 03/03/16 14:03 Discharged to Home/Self Care. Impression: Fall on same level from slipping, tripping and stumbling with subsequent striking against object, Other specific joint derangements of right ankle, not elsewhere classified, Contusion of right shoulder. - Condition is Stable. - Discharge Instructions: Ankle Sprain, Shoulder Pain, Stirrup Ankle Brace. - Medication Reconciliation, Work Release Form - 1 day, Local Pharmacy Hours form. - Follow up: Azael Patel MD; When: 4 - 5 days; Reason: Recheck today's complaints, Continuance of care. - Problem is an ongoing problem. - Symptoms are unchanged. - Notes: ice 20 min an hour Historical: - Allergies: SULFA (SULFONAMIDES); Afrin; Marcaine 0.5%; Soy; Latex; - Home Meds: 1. Vitamin B-12 1,000 mcg Oral lozg 2. multivitamin Oral tab 1 tablet daily 3. Fish Oil 1,000 mg Oral cap 4. Vitamin D Oral 5000 unit daily 5. Calcium Petites 200 (500)-400 mg-unit oral cap 6. Advair Diskus 250-50 mcg/dose Inhl dsdv 1 puff 2 times per day 7. QNASL 80 mcg/actuation nasal HFAA 2 sprays once daily 8. Cymbalta 60 mg Oral cpDR 1 cap nightly 9. Protonix 40 mg Oral TbEC 1 tab once daily 10. Singulair 10 mg Oral tab 1 tab once daily 11. Zyrtec 10 mg Oral tab 1 tab once daily 12. magnesium 400 mg oral tab twice a day 13. cefdinir 300 mg Oral cap 1 cap every 12 hours 14. Mucinex 600 mg oral Ta12 1 tab every 12 hours - PMHx: Alcoholism; Asthma; chronic pain; - PSHx: Cholecystectomy; Tubal ligation; Breast biopsy- Right; Sinus Surgery; Adenoidectomy; Cesearean Section; Hysterectomy; Gastric Bypass; - Social history: Smoking status: Patient states was never smoker of tobacco. No barriers to communication noted, The patient speaks fluent Sinhala, Speaks appropriately for age. - Family history: Not pertinent. - : The pt / caregiver states he / she is not on anticoagulants. Home medication list is obtained from the patient. - Exposure Risk Screening:: None identified. 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 2 in. (157.48 cm) (R); Pain 5/10; 14:26 BP 117 / 79; Pulse 75; Resp 18; Temp 97.9(O); Pulse Ox 97% on R/A; Pain 5/10; jrd 12:43 Body Mass Index 39.87 (98.88 kg, 157.48 cm) cmb 12:43 PT REQUEST MANUAL BP cmb MDM: 13:10 Acetaminophen Tablet 975 mg PO once ordered. ke 13:10 Ankle, Complete Ordered. EDMS 13:12 Shoulder, Complete Ordered. EDMS 13:12 Knee, Complete Ordered. EDMS 13:36 Financial registration complete. lg 14:02 Apply Air Cast to Patient. ordered. ke 15:13 [facility] Payment Agreement was scanned into [employer] and attached to record. lg 15:15 T-Sheet-- Draft Copy was scanned into [employer] and attached to record. gb Administered Medications: 13:37 Drug: Acetaminophen 975 mg [acetaminophen 325 mg tablet (3 tabs)] Route: PO; ck1 Addendum: 03/09/2016 20:43 Radiology Callback: Radiology results faxed to primary care physician/provider. dr yana alexander faxed formal report of right ankle film for fu mlg. Signatures: Dispatcher MedHost EDMS Misbah Lopez MD MD ml Michelson, Staci, ANNE MARIE KENNEY [facility] Loyda Kendrick, Reg Reg gb Dahiana Downing, Reg Reg lg Nasir Kimble RN RN dy Elsner, Karl, AFTER SCHOOL TUTOR AFTER SCHOOL TUTOR Megan ValdovinosRN RN ck1 The chart was reviewed and I authenticate all verbal orders and agree with the evaluation and treatment provided.Attachments: 03/03 15:13 [facility] [place] Payment Agreement lg 15:15 T-Sheet-- Draft Copy gb MTDD
--- NOTE | 2016-03-09 20:46 | EDDOCDS ---
Physician Documentation [facility] Name: Elsie Benjamin Age: 55 yrs Sex: Female : 1960 Arrival Date: 03/03/2016 Time: 12:42 Bed I10 / 23 Private MD: zAael Patel Disposition: 03/03/16 14:03 Discharged to Home/Self Care. Impression: Fall on same level from slipping, tripping and stumbling with subsequent striking against object, Other specific joint derangements of right ankle, not elsewhere classified, Contusion of right shoulder. - Condition is Stable. - Discharge Instructions: Ankle Sprain, Shoulder Pain, Stirrup Ankle Brace. - Medication Reconciliation, Work Release Form - 1 day, Local Pharmacy Hours form. - Follow up: Azael Patel MD; When: 4 - 5 days; Reason: Recheck today's complaints, Continuance of care. - Problem is an ongoing problem. - Symptoms are unchanged. - Notes: ice 20 min an hour Historical: - Allergies: SULFA (SULFONAMIDES); Afrin; Marcaine 0.5%; Soy; Latex; - Home Meds: 1. Vitamin B-12 1,000 mcg Oral lozg 2. multivitamin Oral tab 1 tablet daily 3. Fish Oil 1,000 mg Oral cap 4. Vitamin D Oral 5000 unit daily 5. Calcium Petites 200 (500)-400 mg-unit oral cap 6. Advair Diskus 250-50 mcg/dose Inhl dsdv 1 puff 2 times per day 7. QNASL 80 mcg/actuation nasal HFAA 2 sprays once daily 8. Cymbalta 60 mg Oral cpDR 1 cap nightly 9. Protonix 40 mg Oral TbEC 1 tab once daily 10. Singulair 10 mg Oral tab 1 tab once daily 11. Zyrtec 10 mg Oral tab 1 tab once daily 12. magnesium 400 mg oral tab twice a day 13. cefdinir 300 mg Oral cap 1 cap every 12 hours 14. Mucinex 600 mg oral Ta12 1 tab every 12 hours - PMHx: Alcoholism; Asthma; chronic pain; - PSHx: Cholecystectomy; Tubal ligation; Breast biopsy- Right; Sinus Surgery; Adenoidectomy; Cesearean Section; Hysterectomy; Gastric Bypass; - Social history: Smoking status: Patient states was never smoker of tobacco. No barriers to communication noted, The patient speaks fluent Latvian, Speaks appropriately for age. - Family history: Not pertinent. - : The pt / caregiver states he / she is not on anticoagulants. Home medication list is obtained from the patient. - Exposure Risk Screening:: None identified. 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 2 in. (157.48 cm) (R); Pain 5/10; 14:26 BP 117 / 79; Pulse 75; Resp 18; Temp 97.9(O); Pulse Ox 97% on R/A; Pain 5/10; jrd 12:43 Body Mass Index 39.87 (98.88 kg, 157.48 cm) cmb 12:43 PT REQUEST MANUAL BP cmb MDM: 13:10 Acetaminophen Tablet 975 mg PO once ordered. ke 13:10 Ankle, Complete Ordered. EDMS 13:12 Shoulder, Complete Ordered. EDMS 13:12 Knee, Complete Ordered. EDMS 13:36 Financial registration complete. lg 14:02 Apply Air Cast to Patient. ordered. ke 15:13 [facility] Payment Agreement was scanned into [employer] and attached to record. lg 15:15 T-Sheet-- Draft Copy was scanned into [employer] and attached to record. gb Administered Medications: 13:37 Drug: Acetaminophen 975 mg [acetaminophen 325 mg tablet (3 tabs)] Route: PO; ck1 Addendum: 03/09/2016 20:43 Radiology Callback: Radiology results faxed to primary care physician/provider. dr yana alexander faxed formal report of right ankle film for fu mlg. Signatures: Dispatcher [employer] EDMS Misbah Lopez MD MD ml Michelson, Staci, ANNE MARIE KENNEY [facility] Loyda Kendrick, Reg Reg gb Dahiana Downing, Reg Reg lg Nasir Kimble RN RN dy Elsner, Karl, COMPOSITE ENGINEER COMPOSITE ENGINEER Megan ValdovinosRN RN ck1 The chart was reviewed and I authenticate all verbal orders and agree with the evaluation and treatment provided.Attachments: 03/03 15:13 [facility] [place] lg 15:15 T-Sheet-- Draft Copy gb Chart Complete MTDD
--- NOTE | 2016-03-09 20:46 | EDDOCDS ---
Physician Documentation [facility] Name: Elsie Benjamin Age: 55 yrs Sex: Female : 1960 Arrival Date: 03/03/2016 Time: 12:42 Bed I10 / 23 Private MD: Azael Patel Disposition: 03/03/16 14:03 Discharged to Home/Self Care. Impression: Fall on same level from slipping, tripping and stumbling with subsequent striking against object, Other specific joint derangements of right ankle, not elsewhere classified, Contusion of right shoulder. - Condition is Stable. - Discharge Instructions: Ankle Sprain, Shoulder Pain, Stirrup Ankle Brace. - Medication Reconciliation, Work Release Form - 1 day, Local Pharmacy Hours form. - Follow up: Azael Patel MD; When: 4 - 5 days; Reason: Recheck today's complaints, Continuance of care. - Problem is an ongoing problem. - Symptoms are unchanged. - Notes: ice 20 min an hour Historical: - Allergies: SULFA (SULFONAMIDES); Afrin; Marcaine 0.5%; Soy; Latex; - Home Meds: 1. Vitamin B-12 1,000 mcg Oral lozg 2. multivitamin Oral tab 1 tablet daily 3. Fish Oil 1,000 mg Oral cap 4. Vitamin D Oral 5000 unit daily 5. Calcium Petites 200 (500)-400 mg-unit oral cap 6. Advair Diskus 250-50 mcg/dose Inhl dsdv 1 puff 2 times per day 7. QNASL 80 mcg/actuation nasal HFAA 2 sprays once daily 8. Cymbalta 60 mg Oral cpDR 1 cap nightly 9. Protonix 40 mg Oral TbEC 1 tab once daily 10. Singulair 10 mg Oral tab 1 tab once daily 11. Zyrtec 10 mg Oral tab 1 tab once daily 12. magnesium 400 mg oral tab twice a day 13. cefdinir 300 mg Oral cap 1 cap every 12 hours 14. Mucinex 600 mg oral Ta12 1 tab every 12 hours - PMHx: Alcoholism; Asthma; chronic pain; - PSHx: Cholecystectomy; Tubal ligation; Breast biopsy- Right; Sinus Surgery; Adenoidectomy; Cesearean Section; Hysterectomy; Gastric Bypass; - Social history: Smoking status: Patient states was never smoker of tobacco. No barriers to communication noted, The patient speaks fluent Danish, Speaks appropriately for age. - Family history: Not pertinent. - : The pt / caregiver states he / she is not on anticoagulants. Home medication list is obtained from the patient. - Exposure Risk Screening:: None identified. 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 2 in. (157.48 cm) (R); Pain 5/10; 14:26 BP 117 / 79; Pulse 75; Resp 18; Temp 97.9(O); Pulse Ox 97% on R/A; Pain 5/10; jrd 12:43 Body Mass Index 39.87 (98.88 kg, 157.48 cm) cmb 12:43 PT REQUEST MANUAL BP cmb MDM: 13:10 Acetaminophen Tablet 975 mg PO once ordered. ke 13:10 Ankle, Complete Ordered. EDMS 13:12 Shoulder, Complete Ordered. EDMS 13:12 Knee, Complete Ordered. EDMS 13:36 Financial registration complete. lg 14:02 Apply Air Cast to Patient. ordered. ke 15:13 [facility] Payment Agreement was scanned into [employer] and attached to record. lg 15:15 T-Sheet-- Draft Copy was scanned into [employer] and attached to record. gb Administered Medications: 13:37 Drug: Acetaminophen 975 mg [acetaminophen 325 mg tablet (3 tabs)] Route: PO; ck1 Addendum: 03/09/2016 20:43 Radiology Callback: Radiology results faxed to primary care physician/provider. dr yana alexander faxed formal report of right ankle film for fu mlg. Signatures: Dispatcher [employer] EDMS Misbah Lopez MD MD ml Michelson, Staci, ANNE MARIE KENNEY [facility] Loyda Kendrick, Reg Reg gb Dahiana Downing, Reg Reg lg Nasir Kimble RN RN dy Elsner, Karl, FRONT OFFICE CLERK FRONT OFFICE CLERK Megan ValdovinosRN RN ck1 The chart was reviewed and I authenticate all verbal orders and agree with the evaluation and treatment provided.Attachments: 03/03 15:13 [facility] [place] Agreement lg 15:15 T-Sheet-- Draft Copy gb Chart Complete MTDD
--- NOTE | 2016-03-09 20:46 | EDDOCDS ---
Nurse's Notes [facility] Name: Elsie Benjamin Age: 55 yrs Sex: Female : 1960 Arrival Date: 03/03/2016 Time: 12:42 Bed I10 / 23 Private MD: Azael Patel Diagnosis: Fall on same level from slipping, tripping and stumbling with subsequent striking against object;Other specific joint derangements of right ankle, not elsewhere classified;Contusion of right shoulder Presentation: 03/03 12:47 Presenting complaint: Patient states: stepped onto TV cord causing her to twist right dy ankle then land on right side. complaining of right side pain. Adult Sepsis Screening: The patient does not have new or worsening altered mentation. Patient's respiratory rate is less than 22. Systolic blood pressure is greater than 100. Patient has a qSOFA score of 0- Negative Sepsis Screen. Suicide/Homicide risk assessment- the patient denies having any suicidal and/or homicidal ideations and does not present with any other emotional, behavioral or mental health complaints. 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 Transition of care: patient was not received from another setting of care. 12:47 Acuity: NA Level 4 dy 12:47 Method Of Arrival: Walkin/Carried/Asstd dy Triage Assessment: 12:53 General: Appears uncomfortable. Pain: Location: right side of body; right ankle. HIV dy screening NA for this visit Offered previously. Musculoskeletal: Circulation, motion, and sensation intact. 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 Vitamin B-12 1,000 mcg Oral lozg 2. multivitamin Oral tab 1 tablet daily 3. Fish Oil 1,000 mg Oral cap 4. Vitamin D Oral 5000 unit daily 5. Calcium Petites 200 (500)-400 mg-unit oral cap 6. Advair Diskus 250-50 mcg/dose Inhl dsdv 1 puff 2 times per day 7. QNASL 80 mcg/actuation nasal HFAA 2 sprays once daily 8. Cymbalta 60 mg Oral cpDR 1 cap nightly 9. Protonix 40 mg Oral TbEC 1 tab once daily 10. Singulair 10 mg Oral tab 1 tab once daily 11. Zyrtec 10 mg Oral tab 1 tab once daily 12. magnesium 400 mg oral tab twice a day 13. cefdinir 300 mg Oral cap 1 cap every 12 hours 14. Mucinex 600 mg oral Ta12 1 tab every 12 hours - PMHx: Alcoholism; Asthma; chronic pain; - PSHx: Cholecystectomy; Tubal ligation; Breast biopsy- Right; Sinus Surgery; Adenoidectomy; Cesearean Section; Hysterectomy; Gastric Bypass; - Social history: Smoking status: Patient states was never smoker of tobacco. No barriers to communication noted, The patient speaks fluent Estonian, Speaks appropriately for age. - Family history: Not pertinent. - : The pt / caregiver states he / she is not on anticoagulants. Home medication list is obtained from the patient. - Exposure Risk Screening:: None identified. Screenin:43 Infection Control. cmb 13:38 Screening information is obtained from the patient. Fall risk: No risks identified. ck1 Assistance ADL's: requires no assistance with activities of daily living. Abuse/DV Screen: The patient / caregiver reports he/she is: not in a situation that causes fear, pain or injury. Nutritional screening: No deficits noted. Advance Directives: Currently, there is no health care proxy. home support is adequate. Assessment: 13:37 General: Appears in no apparent distress, comfortable, Behavior is appropriate for age, ck1 cooperative. Pain: Location: right ankle Pain currently is 4 out of 10 on a pain scale. Derm: Skin is intact, is healthy with good turgor, Skin is pink, warm & dry. Musculoskeletal: Circulation, motion, and sensation intact Range of motion intact in all extremities. 14:25 General: Appears in no apparent distress, Behavior is appropriate for age, cooperative. srm Musculoskeletal: Circulation, motion, and sensation intact Capillary refill < 3 seconds in right toes. Vital Signs: 12:43 Pulse 75; Resp 18; Temp 98.5(O); Pulse Ox 98% ; Weight 98.88 kg (R); Height 5 ft. 2 in. cmb (157.48 cm) (R); Pain 5/10; 14:26 BP 117 / 79; Pulse 75; Resp 18; Temp 97.9(O); Pulse Ox 97% on R/A; Pain 5/10; jrd 12:43 Body Mass Index 39.87 (98.88 kg, 157.48 cm) cmb 12:43 PT REQUEST MANUAL BP cmb Vitals: 12:43 Log In Time: March 03, 2016 at 12:37. cmb ED Course: 12:43 Patient visited by Racheal Trammell. cmb 12:43 Azael Patel MD is Private Physician. cmb 12:43 Patient moved to Waiting cmb 12:46 Patient moved to Pre RCE cmb 12:48 Triage Initiated dy 13:02 Tyrell Castañeda FNP is PHCP. ke 13:02 Patient visited by Tyrell Castañeda FNP. ke 13:02 Patient visited by Tyrell Castañeda FNP. ke 13:02 Patient moved to Triage 1 rs6 13:10 Patient moved to I10 / 23 rs6 13:33 Patient visited by Tyrell Castañeda FNP. ke 13:38 The patient / caregiver is instructed regarding the plan of care and ED course. ck1 14:02 Azael Patel MD is Referral Physician. ke 14:11 Knee, Complete Returned. EDMS 14:25 No IV's were initiated during this patient's visit. No procedures done that require srm assistance. Air stirrup applied to right ankle Patient with positive distal sensation and brisk distal capillary refill after application. 14:26 Patient visited by Sukh Beckham PCA. jrd 15:10 Ankle, Complete Returned. EDMS 15:13 [facility] [place] Payment Agreement was scanned into [employer] and attached to record. lg 15:15 T-Sheet-- Draft Copy was scanned into [employer] and attached to record. gb 03/04 17:33 Shoulder, Complete Returned. EDMS Administered Medications: 03/03 13:37 Drug: Acetaminophen 975 mg [acetaminophen 325 mg tablet (3 tabs)] Route: PO; ck1 Order Results: Radiology Order: Ankle, Complete Test: Ankle, Complete REASON FOR EXAMINATION: Trauma; RIGHT ANKLE SERIES, FOUR VIEW EXAM, 03/03/2016:; ; FINDINGS: Transversely oriented avulsion fracture noted of the inferior aspect; of the medial malleolus with some callus formation, indicating that this may be a; subacute to old fracture with nonunion. There is some benign callus formation; within the distal fibular shaft, most compatible with an old healed fracture.; There are some dystrophic round calcifications in the medial mortise joint and a; single corticated 6 mm calcific fragment in the posterior ankle joint. There is; a small plantar calcaneal spur.; ; IMPRESSION:; ; Transverse avulsion fracture of the inferior malleolus appears subacute to old; with some callus formation and nonunion. Additionally, there is some benign; cortical thickening within the distal fibular shaft, most compatible with an old; healed fracture.; ; Small round dystrophic calcifications or intra-articular loose bodies within the; medial mortise joint and the posterior ankle joint.; ; ; Signed by; Chacha Davis MD 03/04/2016 07:46 P; Radiology Order: Shoulder, Complete Test: Shoulder, Complete REASON FOR EXAMINATION: Trauma; Three-view right shoulder series one 03/03/16; ; Indication: Trauma; ; Findings: Mild hypertrophic changes are noted at acromioclavicular joint. There; is a small subacromial spur. There is no acute fracture, subluxation, or; dislocation within the right shoulder. Visualized portions of the clavicle as; well as scapula are intact.; ; Impression:; ; Right shoulder without acute fracture, subluxation, or dislocation.; ; Mild hypertrophic changes at acromioclavicular joint. Small subacromial spur.; ; ; ; ; ; ; Signed by; Chacha Davis MD 03/04/2016 05:06 P; Radiology Order: Knee, Complete Test: Knee, Complete REASON FOR EXAMINATION: Trauma; 4 view right knee series, 03/03/16; ; Indication: trauma; ; ; ; Findings:; ; The lateral view of the right knee was obtained in the flexion. There is mild; genu varus deformity. Bony exostosis is noted off the medial aspect of the; proximal fibular shaft consistent with osteochondroma. The joint spaces are; maintained. There is no acute fracture or dislocation.; ; Impression; 1. No acute fracture or dislocation within the right knee. Mild genu varus; deformity; 2. Bony exostosis of the medial superior fibular shaft is most compatible with; an osteochondroma .; ; I; ; ; Signed by; Chacha Davis MD 03/03/2016 01:54 P; Outcome: 14:03 Discharge ordered by Provider. nakia 14:25 Discharge Assessment: Patient awake, alert and oriented x 3. No cognitive and/or srm functional deficits noted. Patient verbalized understanding of disposition instructions. 14:26 Discharge Assessment: Patient awake, alert and oriented x 3. No cognitive and/or srm functional deficits noted. Patient verbalized understanding of disposition instructions. patient administered narcotics - no. The following High Risk Discharge criteria are identified: None. Discharged to home ambulatory. Condition: good Condition: stable. Discharge instructions given to patient, Instructed on discharge instructions, follow up and referral plans. Rest, Ice, Compression and Elevation. Demonstrated understanding of instructions, medications, Pt was receptive of discharge instructions/ teaching. Work note provided to patient. No special radiology studies were completed. Property sent home with patient. 14:29 Patient left the ED. srm Signatures: Dispatcher [employer] EDMS Anika Cruz, RN RN srm Loyda Kendrick, Reg Reg gb Dahiana Downing, Reg Reg lg Nasir Kimble, RN Tyrell Eckert, CONTENT STRATEGIST CONTENT STRATEGIST Megan Valdovinos RN RN ck1 Racheal Trammell cmSukh Jacob, CONTACT CENTER TEAM LEAD CONTACT CENTER TEAM LEAD jrd Latia Welch, CONTACT CENTER TEAM LEAD CONTACT CENTER TEAM LEAD rs6 Chart Complete MTDAlissa
== END 2016-03-03 14:29 | disposition home or self-care (01) ==
LOC: M ED 12:42
DX: S93.401A Sprain of unspecified ligament of right ankle, initial encounter (principal); W01.10XA Fall on same level from slipping, tripping and stumbling with subsequent striking against unspecified object, initial encounter; Y92.9 Unspecified place or not applicable; Y93.9 Activity, unspecified; Y99.0 Civilian activity done for income or pay; F10.20 Alcohol dependence, uncomplicated; J45.909 Unspecified asthma, uncomplicated; G89.29 Other chronic pain; Z98.84 Bariatric surgery status; Z79.899 Other long term (current) drug therapy; Z88.2 Allergy status to sulfonamides; Z88.8 Allergy status to other drugs, medicaments and biological substances; Z91.018 Allergy to other foods; Z91.040 Latex allergy status

== ENCOUNTER → 2016-04-02 | Outpatient (REF) | payer OTHER | LOC: M SFHCPLAZ 15:33 | PROVIDERS: ATTEND Family Medicine | DX: Z86.14 Personal history of Methicillin resistant Staphylococcus aureus infection (principal) ==

== ENCOUNTER → 2016-08-05 | Outpatient (REF) | payer OTHER ==
[~2016-08-05] MED LIST changes: +ADV250INH INH; +ALBU17IN2 INH; +AUGM875T27 PO; +BIOT50005 PO; +CITRTAB10 PO; +DULO30CA PO; +ESTR625TA PO; +FISH5CAP PO; +LEVA12INH INH; +MAGN400C3 PO; +MULT1TAB18 PO; +NAPR500T PO; +PROT1TAB2 PO; +QNAS80AE; +SING10TA32 PO; +TYLE650T35 PO; +VITA1DRO PO; +VITA200016 PO; +ZYRT10CA PO; +[UNRECOGNIZED DRUG - OTHER] PO
== END ==
LOC: M LAB REF 09:17
PROVIDERS: ATTEND Otolaryngology
DX: J01.90 Acute sinusitis, unspecified (principal)

== ENCOUNTER → 2016-08-06 | Outpatient (CLI) | payer OTHER ==
--- NOTE | 2016-08-06 12:53 | REP ---
MAXILLOFACIAL CT WITHOUT CONTRAST: HISTORY: Cellulitis. The patient is status post bilateral uncinectomy. Minimal mucosal thickening is present in the maxillary sinuses. The remaining sinuses are clear. The middle and inferior nasal turbinates are partially paradoxical. The left middle nasal turbinate is hypoplastic. There is minimal deviation of the nasal septum to the left. A spur is present arising from the left side of the nasal septum. The cribriform plate, medial roberts of the orbits, and optic canals are intact. The carotid canals form a segment of the posterolateral roberts of the sphenoid sinus. Artifact from dental amalgam partially obscures the anterior oropharynx and subcutaneous tissue overlying the mandible and maxilla. The naso- and hypopharynx are normal in appearance. Small lymph nodes less than 1 cm in size are present in the internal jugular chains, posterior triangles, and submandibular areas. IMPRESSION: Sinus mucosal thickening as described above. Signed by Thien German MD 08/06/2016 01:05 P
== END ==
LOC: M RAD 11:52
PROVIDERS: ATTEND Otolaryngology
DX: L03.211 Cellulitis of face (principal); J32.0 Chronic maxillary sinusitis

== ENCOUNTER → 2016-10-29 | Outpatient (REF) | payer OTHER ==
[~2016-10-29] MED LIST changes: -AUGM875T27 PO; +AUGM875T28 PO
[2016-11-01 11:09] LABS: PERCENT SATURATION 39.2 % (13.2-45.0)
== END ==
LOC: M LABDRWAD 09:33
PROVIDERS: ATTEND Registered Nurse
DX: K91.2 Postsurgical malabsorption, not elsewhere classified (principal)

== ENCOUNTER → 2016-10-29 | Outpatient (REF) | payer OTHER ==
[2016-10-29 21:26] LABS: ALBUMIN 3.3 GM/DL (3.2-5.2); ALBUMIN/GLOBULIN RATIO 1.22 (1.00-1.93); ALKALINE PHOSPHATASE 86 U/L (45-117); ALT/SGPT 31 U/L (12-78); ANION GAP 8 MEQ/L (8-16); AST/SGOT 16 U/L (15-37); BILIRUBIN,TOTAL 0.7 MG/DL (0.2-1.0); BLOOD UREA NITROGEN 14 MG/DL (7-18); CALCIUM LEVEL 8.6 MG/DL (8.5-10.1); CARBON DIOXIDE LEVEL 28 MEQ/L (21-32); CHLORIDE LEVEL 108 MEQ/L (98-107); CHOLESTEROL LEVEL 163 MG/DL (<200); GLOMERULAR FILTRATION RATE > 60.0 (>51); GLUCOSE, FASTING 81 MG/DL (70-105); POTASSIUM SERUM 4.2 MEQ/L (3.5-5.1); SODIUM LEVEL 144 MEQ/L (136-145); TRIGLYCERIDES LEVEL 110 MG/DL (<150)
[2016-10-29 21:35] LABS: MEAN CORPUSCULAR HEMOGLOBIN 31.9 pg (27.0-33.0); MEAN CORPUSCULAR HGB CONC 33.3 g/dl (32.0-36.5); MEAN CORPUSCULAR VOLUME 95.8 fl (80.0-96.0); RED CELL DISTRIBUTION WIDTH 12.3 % (11.5-14.5); WHITE BLOOD COUNT 5.5 K/mm3 (4.0-10.0)
== END ==
LOC: M SFHCPLAZ 11:56
PROVIDERS: ATTEND Family Medicine
DX: J45.909 Unspecified asthma, uncomplicated (principal); W57.XXXA Bitten or stung by nonvenomous insect and other nonvenomous arthropods, initial encounter; E55.9 Vitamin D deficiency, unspecified; Z13.6 Encounter for screening for cardiovascular disorders; X58.XXXA Exposure to other specified factors, initial encounter; Y93.9 Activity, unspecified; Y92.9 Unspecified place or not applicable; Y99.8 Other external cause status

== ENCOUNTER → 2016-11-01 | Outpatient (CLI) | payer OTHER ==
--- NOTE | 2016-11-01 16:35 | REP ---
Lumbar spine series: Seven views including flexion extension lateral views. History: Low back pain. No known injury. Sacral coccygeal disorder. Findings: Lateral radiographs in flexion/extension and neutral position show preserved vertebral body heights except at L1 where there is mild anterior wedging. Less than 20%. There is straightening of the normal lumbar lordosis. Limitation of flexion/extension range of motion is seen. There is moderate degenerative disc disease at L3-4, L2-3, L1-2, and T12-L1. No subluxation or instability is seen. There are clips in right upper quadrant and sutures in the left upper quadrant. There is a mild dextroconvex curvature in the lumbar spine on the frontal radiograph. There is osteoarthritic facet sclerosis at L5-S1 right greater than left. Sacrum and SI joints are intact. Psoas margins are symmetric. Impression: Degenerative spondylosis changes as above. Straightening. Dextroconvex curvature. Signed by Adithya Malone MD 11/01/2016 04:38 P
== END ==
LOC: M ADAMS 14:37
PROVIDERS: ATTEND Family Medicine
DX: M53.3 Sacrococcygeal disorders, not elsewhere classified (principal)

== ENCOUNTER → 2017-02-08 | Outpatient (CLI) | payer OTHER ==
--- NOTE | 2017-02-08 15:27 | REPMRS ---
Patient History The patient states she had a clinical breast exam in December 2016.Patient is postmenopausal. Patient has lost 110 pounds due to gastric bypass. No known family history of cancer. Benign excisional biopsy of the right breast, 1997. Digital Mammo Screening Bilat: February 08, 2017 - Exam #: [id number] Bilateral CC and MLO view(s) were taken. Technologist: Rachael Yao, Technologist Prior study comparison: February 19, 2016, digital woman screen mammo, performed at [facility]. December 09, 2014, bilateral digital mammo screening bilat performed at [facility]. FINDINGS: The breast tissue is heterogeneously dense. This may lower the sensitivity of mammography. There has been no change in the appearance of the mammogram from the prior studies. There is a moderate amount of residual fibroglandular tissue which is fairly symmetric. There is no interval development of dominant mass, areas of architectural distortion, or clustered microcalcification typical of malignancy. ASSESSMENT: BI-RADS/ACR category 1 mammogram. Negative. Recommendation Routine screening mammogram in 1 year (for women over age 40). This mammogram was interpreted with the aid of an FDA-approved computer-aided dectection system. Electronically Signed By: Onur Hunt MD 02/08/17 [id number]
== END ==
LOC: M RAD 11:45
PROVIDERS: ATTEND Obstetrics & Gynecology
DX: Z12.31 Encounter for screening mammogram for malignant neoplasm of breast (principal); R92.8 Other abnormal and inconclusive findings on diagnostic imaging of breast; Z78.0 Asymptomatic menopausal state; Z98.0 Intestinal bypass and anastomosis status

== ENCOUNTER → 2017-05-08 | Outpatient (REF) | payer OTHER ==
[2017-05-08 18:03] LABS: HEMOGLOBIN 13.2 g/dl (12.0-16.0); MEAN CORPUSCULAR HEMOGLOBIN 30.3 pg (27.0-33.0); MEAN CORPUSCULAR HGB CONC 32.2 g/dl (32.0-36.5); MEAN CORPUSCULAR VOLUME 94.3 fl (80.0-96.0); PLATELET COUNT, AUTOMATED 301 10^3/uL (150-450); RED BLOOD COUNT 4.35 10^6/uL (4.00-5.40); RED CELL DISTRIBUTION WIDTH 12.6 % (11.5-14.5); WHITE BLOOD COUNT 8.3 10^3/uL (4.0-10.0)
[2017-05-08 18:22] LABS: FERRITIN 32 NG/ML (8-252)
== END ==
LOC: M LABDRWAD 09:13
DX: Z98.84 Bariatric surgery status (principal)

== ENCOUNTER 2017-06-21 12:20 | Day surgery (SDC) | payer OTHER ==
[2017-06-21] MEDS: NS 1,000 ML IV (12:45)
[2017-06-21] MEDS ORDERED: MIDAZOLAM INJ 2 MG/2 ML VIAL (J2250) As Ordered ×5 (13:33→13:34)
[2017-06-21] MEDS ORDERED: fentaNYL 100 MCG/2 ML INJECTION (J3010) As Ordered ×2 (13:34)
== END 2017-06-21 14:48 | disposition home or self-care (01) ==
LOC: M OPP 12:20
DX: R19.7 Diarrhea, unspecified (principal); Z86.010 Personal history of colon polyps; D12.2 Benign neoplasm of ascending colon; R23.3 Spontaneous ecchymoses; K21.9 Gastro-esophageal reflux disease without esophagitis; M19.90 Unspecified osteoarthritis, unspecified site; M54.89 Other dorsalgia; J45.909 Unspecified asthma, uncomplicated; G47.8 Other sleep disorders; G47.30 Sleep apnea, unspecified; M79.7 Fibromyalgia; R06.83 Snoring; Z98.84 Bariatric surgery status; Z88.3 Allergy status to other anti-infective agents; Z91.012 Allergy to eggs; Z91.048 Other nonmedicinal substance allergy status; Z91.040 Latex allergy status; Z88.8 Allergy status to other drugs, medicaments and biological substances; Z91.010 Allergy to peanuts; Z88.2 Allergy status to sulfonamides; Z91.018 Allergy to other foods; Z79.899 Other long term (current) drug therapy; Z80.51 Family history of malignant neoplasm of kidney; Z80.8 Family history of malignant neoplasm of other organs or systems
CPT/HCPCS: 45385

== ENCOUNTER → 2018-02-06 | Outpatient (REF) | payer OTHER ==
[~2018-02-06] MED LIST changes: +NAPR-49 PO; -NAPR500T PO
--- NOTE | 2018-02-06 20:36 | REP ---
Digital screening bilateral mammography with CAD: 3-D tomosynthesis. Comparison mammography February 08, 2017, February 19, 2016, and December 09, 2014. Mammographic findings: Breast parenchyma remains heterogeneously dense in a pattern which may inhibit the sensitivity of mammography. No suspicious mammographic abnormality is noted on the right. On the left there is a possible neodensity with a partially obscured otherwise well-circumscribed margins in the lateral aspect of the left breast at approximately the 3 o'clock position. This merits further evaluation. No spiculation or microcalcification is observed. No worrisome skin change is seen. Mammography is otherwise unremarkable. Impression: BIRADS/ACR category zero mammogram, incomplete. Additional imaging and/or prior images needed. 12 mm partially obscured nodular neodensity lateral left breast approximately 3 o'clock position. Diagnostic left breast mammography and focused left breast sonography recommended. This mammogram was interpreted with the aid of an FDA-approved computer-aided detection system. The patient states she had a clinical breast exam in November 2017. The patient letter being requested is M0. This patient's estimated Tyrer-Cuzick lifetime risk assessment for the breast cancer is 9.0 %. Electronically Signed by dAithya Malone MD 02/06/2018 08:46 P
== END ==
LOC: M RAD 14:41 → EDSTATUS 15:00
PROVIDERS: ATTEND Obstetrics & Gynecology
DX: Z12.31 Encounter for screening mammogram for malignant neoplasm of breast (principal); R92.8 Other abnormal and inconclusive findings on diagnostic imaging of breast

== ENCOUNTER → 2018-02-17 | Outpatient (CLI) | payer OTHER ==
[~2018-02-17] MED LIST changes: -NAPR-49 PO; +NAPR-50 PO
--- NOTE | 2018-02-17 15:17 | REP ---
Digital diagnostic unilateral left breast mammography with CAD and focused left breast sonography: History: Screening mammography February 06, 2018 was BIRADS category 0 because of a nodular density laterally in the left breast. Comparison is also made with February 19, 2016 and February 08, 2017 prior mammography. Findings: Bread greco focal spot left breast images are obtained mammographically in the CC, true MLO, and MLO projections. These demonstrate that the partially obscured otherwise well-circumscribed nodule persists in the lateral and slightly inferior aspect of the left breast. No other mammographic abnormality. Sonographic findings: The left breast is scanned from 3 o'clock to 7 o'clock. At approximately 3 o'clock, there is a 1.1 x 0.6 x 1.2 cm cyst which is felt to account for the mammographic opacity. This is located 1.5 cm from the nipple. Another smaller cyst is seen at approximately 7 o'clock, 0.3 cm in greatest diameter. There is a third 0.4 cm cyst in the retroareolar region. Impression: BIRADS category 2 benign breast imaging. Cyst seen accounting for the mammographic opacity. Repeat screening mammography recommended in one year. BI-RADS/ACR category 2 mammogram. Benign finding(s). Routine annual screening mammography (for women over age 40). This mammogram was interpreted with the aid of an FDA-approved computer-aided detection system. The patient states she had a clinical breast exam in November 2017. The patient letter being requested is m1. Electronically Signed by Adithya Malone MD 02/17/2018 04:18 P
== END ==
LOC: M RAD 12:31
PROVIDERS: ATTEND Obstetrics & Gynecology
DX: Z12.31 Encounter for screening mammogram for malignant neoplasm of breast (principal); R92.2 Inconclusive mammogram

== ENCOUNTER → 2018-04-07 | Outpatient (CLI) | payer OTHER ==
[~2018-04-07] MED LIST changes: +ADVA115A INH; +ATRO0.063 INH; +CALC600T57 PO; +DICL13PA TOP; +EXCETAB80 PO; +LIDO5CRE6 TOP; +VITA100072 PO
--- NOTE | 2018-04-07 13:48 | ECGEPIP ---
Stationary ECG Study [facility] Test Date: 2018-04-07 Pat Name: TANIA SOLIS Department: Room: - Gender: F [employer]: : 1960 Requested By: Azael Maxwell Order Number: [id number] Reading MD: Karin Vidales Measurements Intervals [place] Rate: 62 P: 53 UT: 148 QRS: -21 QRSD: 90 T: 30 QT: 426 QTc: 434 Interpretive Statements SINUS RHYTHM LEFT AXIS DEVIATION PRWP CANNOT R/O OLD IWMI Q AVF NEW C/W 05/21/13 PRWP Electronically Signed On 04-07-2018 13:48:25 EST by Karin Vidales
[2018-04-07 14:16] LABS: HEMATOCRIT 37.8 % (36.0-47.0); HEMOGLOBIN 12.2 g/dl (12.0-15.5); MEAN CORPUSCULAR HEMOGLOBIN 30.7 pg (27.0-33.0); MEAN CORPUSCULAR HGB CONC 32.3 g/dl (32.0-36.5); PLATELET COUNT, AUTOMATED 226 10^3/uL (150-450); RED BLOOD COUNT 3.98 10^6/uL (4.00-5.40); WHITE BLOOD COUNT 5.1 10^3/uL (4.0-10.0)
--- NOTE | 2018-04-07 14:35 | REP ---
PA and lateral chest: Comparison is a 05/21/2013. The lung moreno are clear. The cardiac size is normal. The raul, mediastinum, and skeletal structures are unremarkable. Impression: Negative PA and lateral chest. There is no interval change. There is mild scoliosis convex right at the thoracolumbar junction, unchanged. Electronically Signed by Onur Land MD 04/07/2018 02:27 P
[2018-04-07 14:36] LABS: INR 0.91; PROTHROMBIN TIME 12.3 SECONDS (12.1-14.4)
[2018-04-07 14:47] LABS: ERYTHROCYTE SEDIMENTATION RATE 9 mm/hr (0-30)
[2018-04-07 14:48] LABS: ALBUMIN 3.6 GM/DL (3.2-5.2); ALT/SGPT 34 U/L (12-78); BILIRUBIN,TOTAL 0.8 MG/DL (0.2-1.0); BLOOD UREA NITROGEN 16 MG/DL (7-18); CALCIUM LEVEL 8.3 MG/DL (8.5-10.1); CARBON DIOXIDE LEVEL 31 MEQ/L (21-32); CHLORIDE LEVEL 102 MEQ/L (98-107); CREATININE FOR GFR 0.72 MG/DL (0.55-1.30); GLOMERULAR FILTRATION RATE > 60.0 (>51); GLUCOSE, FASTING 83 MG/DL (70-100); POTASSIUM SERUM 4.4 MEQ/L (3.5-5.1); SODIUM LEVEL 139 MEQ/L (136-145); TOTAL PROTEIN 6.1 GM/DL (6.4-8.2)
== END ==
LOC: M LAB 13:03
PROVIDERS: ATTEND Orthopaedic Surgery
DX: Z01.818 Encounter for other preprocedural examination (principal); M17.12 Unilateral primary osteoarthritis, left knee; J45.909 Unspecified asthma, uncomplicated; I49.3 Ventricular premature depolarization; K21.9 Gastro-esophageal reflux disease without esophagitis; R58 Hemorrhage, not elsewhere classified

== ENCOUNTER 2018-04-11 15:30 | Inpatient (IN) | payer OTHER ==
[~2018-04-11] VITALS: Ht 154.9 cm; Wt 72.1 kg
[2018-04-24] VITALS (9 sets, daily range): BP systolic 96–139; BP diastolic 53–66; O2SAT 96–98
[2018-04-24] MEDS ORDERED: MIDAZOLAM INJ 2 MG/2 ML VIAL (J2250) IV SCH (06:00)
[2018-04-24] MEDS ORDERED: fentaNYL 100 MCG/2 ML INJECTION (J3010) As Ordered ONE (06:47)
[2018-04-24] MEDS ORDERED: MUPI2OI (06:47)
[2018-04-24] MEDS ORDERED: AMOX875T (06:47)
[2018-04-24] MEDS ORDERED: LIDO1PAD (06:47)
[2018-04-24] MEDS ORDERED: MIDAZOLAM INJ 2 MG/2 ML VIAL (J2250) As Ordered ONE (06:47)
[2018-04-24] MEDS ORDERED: ceFAZolin 1GM INJ (J0690 PER 500MG) As Ordered ONE (07:12)
[2018-04-24] MEDS ORDERED: TRANEXAMIC ACID 100 MG/ML 10ML VIAL As Ordered ONE (07:12)
[2018-04-24] MEDS ORDERED: EPINEPHrine INJ 1 MG/ML 1ML AMP As Ordered ONE (07:12)
[2018-04-24] MEDS ORDERED: BUPIVACAINE LIPOSOME/PF 1.3% 20ML VIAL (13.3MG/ML)(EXPAREL)(C9290 PER1MG) As Ordered ONE (07:13)
[2018-04-24] MEDS ORDERED: LR 1,000 ML IV SCH (07:15)
[2018-04-24] MEDS ORDERED: ceFAZolin 2 GM/D5W 50 ML IV BAG (J0690 PER 500MG) As Ordered ONE (07:34)
[2018-04-24] MEDS ORDERED: MIDAZOLAM INJ 5 MG/ML VIAL (J2250) As Ordered ONE ×2 (07:45→07:48)
[2018-04-24] MEDS ORDERED: BUPIVACAINE/DEXTROSE 0.75% 2 ML AMP As Ordered ONE (07:51)
[2018-04-24] MEDS ORDERED: ONDANSETRON 4MG/2ML VIAL (J2405) As Ordered ONE (08:20)
[2018-04-24] MEDS ORDERED: dexameTHASONE 4 MG/ML 1ML VIAL (J1100) As Ordered ONE ×2 (08:20→08:21)
[2018-04-24] MEDS ORDERED: KETOROLAC 60 MG/2 ML VIAL (J1885) As Ordered ONE (08:20)
[2018-04-24] MEDS ORDERED: PHENYLephrine HCL 500 MCG/5 ML (100MCG/ML) SYRINGE (J2370) As Ordered ONE (08:23)
[2018-04-24] MEDS ORDERED: SODIUM CHLORIDE 0.9% INJ 10 ML SYR ONE (08:42)
[2018-04-24] MEDS ORDERED: ROPIvacaine 0.5% 30 ML INJECTION (J2795 PER 1MG) ONE (08:42)
[2018-04-24] MEDS ORDERED: EPINEPHrine INJ 1 MG/ML 1ML AMP ONE (08:42)
[2018-04-24] MEDS ORDERED: FLEET ENEMA PR PRN (09:45)
[2018-04-24] MEDS: LR 1,000 ML IV SCH ×2 (09:45→23:05)
[2018-04-24] MEDS ORDERED: ONDANSETRON 4MG/2ML VIAL (J2405) IV PRN (09:45)
[2018-04-24] MEDS ORDERED: MORPHINE 4 MG/ML 1ML VIAL/SYRINGE (J2270) IV PRN ×2 (09:45)
[2018-04-24] MEDS ORDERED: ACETAMINOPHEN TAB 650MG DOSE (2X325MG) PO PRN (09:45)
[2018-04-24] MEDS ORDERED: fentaNYL 100 MCG/2 ML INJECTION (J3010) IV PRN (09:45)
--- NOTE | 2018-04-24 09:47 | REP ---
Left knee: Two views. History: Postop evaluation. Comparison left knee radiographs July 31, 2017. Findings: The patient is status post left knee arthroplasty. Anterior skin rosa are seen. Arthroplasty components are well aligned. Periarticular soft tissue emphysema and swelling is seen. Impression: Status post left knee arthroplasty. Electronically Signed by Adithya Malone MD 04/24/2018 12:45 P
[2018-04-24] MEDS: PERCOCET 5MG/325MG TAB PO PRN ×2 (14:21→20:06)
--- NOTE | 2018-04-24 14:27 | IPN ---
DATE: 04/24/2018 The patient was seen and examined. She wished to go ahead with a left total knee arthroplasty. She is well aware of the nature of the procedure, the risks of bleeding, infection, damage to nerves, vessels, persistent pain, wear loosening, blood clots, medical problems, among others. Preop clearance was obtained.
[2018-04-24] MEDS ORDERED: ONDANSETRON 4 MG TAB (S0181) PO SCH (18:00)
[2018-04-24] MEDS ORDERED: ONDANSETRON 4 MG TAB (S0181) PO PRN (18:15)
--- NOTE | 2018-04-24 19:28 | RO ---
DATE OF PROCEDURE: 04/24/2018 PREOPERATIVE DIAGNOSIS: Left knee osteoarthritis. POSTOPERATIVE DIAGNOSIS: Left knee osteoarthritis. PROCEDURE: Left total knee arthroplasty using Attune size 4 narrow femur, 4 tibia, 8 polyethylene, 32 button, cruciate-retaining rotating platform. SURGEON: Franky Kyle MD FIRST ASSESSMENT: Alexandria Currie ANESTHESIA: Spinal. ESTIMATED BLOOD LOSS: Less than 5 mL. COMPLICATIONS: None. INDICATIONS: A 57-year woman who has had some gradually worsening left knee pain. She has been through multiple treatments and wished to go ahead with a knee replacement. She understood the nature and the risks associated with this. DESCRIPTION OF PROCEDURE: The patient was taken to operating room, placed in supine position after spinal anesthesia was induced. Left lower extremity was prepped and draped in usual sterile fashion. A time-out was performed. Tourniquet was inflated, and a longitudinal incision was made over the anterior aspect of the knee. A medial parapatellar arthrotomy was performed per routine, flexed the knee up, used the canal initiating reamer followed by the intramedullary guide on the femoral side set at 5 degrees of valgus, 9 mm cut. This was pinned in place by the assistant professor of nursing. A distal femoral cut was made in the usual fashion. I then sized to be a 4 and the 4 cutting block was secured. Remaining cuts were made. We then prepared the tibia. Posterior tractor was placed. We protected the tibial surface, and I set the alignment guide for the appropriate amount of valgus and posterior slope and made the proximal tibial cut. All soft tissues were protected. I was able to protect the posterior cruciate ligament (PCL), and this remained intact. The sulcus cut was then made on the femoral side in the usual technique. I then placed a size 4 on the tibial surface; this fit nicely. I drilled and broached, and the trial components were then placed. I put the knee through a range of motion, was very pleased with the stability. I had also, prior to this, removed soft tissue from the posterior aspect of the knee and any osteophytes from around the femur and tibia. Spacer blocks had been used and the size 7 or 8 was likely to be the choice for thickness. We end up trialing an 8 and a 7, and the 8 seemed to have better stability and excellent range of motion. Of note is that the patient did have a fair amount a ligamentous laxity preoperatively, but the soft tissue balance was excellent at this point. I freehand cut the patella, sized to be a 32 and then put the patella trial through a range of motion and it fit very nicely. The trial components were removed. I copiously irrigated, placed the Exparel in the deep tissues and irrigated copiously, dried the bony surfaces. The assistant professor of nursing prepared the bone cement in the modern technique. I then cemented on the tibial component, impacted in place, cemented on the femoral, impacted it in place. We had also placed the polyethylene, size 8 rotating platform, cruciate retaining. All excess bone cement was removed. We cemented on the patella, held it in place with a clamp, and removed excess bone cement. I then irrigated copiously, placed the TXA solution in the deep tissues and began closing the deep layer with #1 Vicryl suture in an interrupted fashion followed by a running Stratafix suture starting proximally and then when the cement hardened, removed the patellar clamp, closed the remainder with the running Stratafix and had excellent watertight closure. I put the knee through a range of motion. There was no clicking or catching. Excellent stability noted. I had irrigated the deep tissues prior to final deep closure. I then irrigated, closed the subcu with #2-0 Vicryl, the skin with rosa. A sterile dressing was applied, tourniquet was deflated, and she was taken to the recovery room in stable condition. There were no known complications. The plan will be routine postop. ADDENDUM: (Dictated 04/24/2018) The assistant professor of nursing was instrumental in holding retractors and mixing the bone cement, and assisting in wound closure, and making the distal femoral cut.
[2018-04-25] MEDS: PERCOCET 5MG/325MG TAB PO PRN ×3 (01:36→11:05)
[2018-04-25 02:00] VITALS: BP 112/57
[2018-04-25 06:00] VITALS: BP 103/59
[2018-04-25] MEDS: MOM 30ML SUSPENSION UDC PO SCH ×5 (06:45→21:00)
[2018-04-25 06:59] LABS: HEMATOCRIT 29.7 % (36.0-47.0); HEMOGLOBIN 9.8 g/dl (12.0-15.5); MEAN CORPUSCULAR HEMOGLOBIN 31.1 pg (27.0-33.0); MEAN CORPUSCULAR VOLUME 94.3 fl (80.0-96.0); PLATELET COUNT, AUTOMATED 218 10^3/uL (150-450); RED BLOOD COUNT 3.15 10^6/uL (4.00-5.40); WHITE BLOOD COUNT 8.8 10^3/uL (4.0-10.0)
[2018-04-25] MEDS ORDERED: XARE10TA PO (08:47)
[2018-04-25] MEDS ORDERED: PERC5TAB12 PO (08:47)
[2018-04-25] MEDS ORDERED: MIRALAX *UNIT DOSE* 17GM PACKET PO SCH (09:00)
[2018-04-25] MEDS ORDERED: CYCLOBENZAPRINE 5MG TABLET PO ONE (10:15)
[2018-04-25 14:00] VITALS: BP 116/56
[2018-04-25 15:42] VITALS: BP 89/53
[2018-04-25 15:44] VITALS: BP 139/77
[2018-04-25] MEDS: ACETAMINOPH W/CODEINE #3 TAB UD PO PRN ×2 (16:00→21:00)
[2018-04-25] MEDS ORDERED: RIVAROXABAN 10 MG TAB (XARELTO) PO SCH (18:00)
[2018-04-25 22:00] VITALS: BP 111/61
[2018-04-26] MEDS: ACETAMINOPH W/CODEINE #3 TAB UD PO PRN ×2 (01:42→05:54)
[2018-04-26] MEDS: MOM 30ML SUSPENSION UDC PO SCH ×2 (01:54→05:55)
[2018-04-26 06:00] VITALS: BP 116/66
[2018-04-26 06:59] LABS: HEMATOCRIT 32.9 % (36.0-47.0); HEMOGLOBIN 10.4 g/dl (12.0-15.5); MEAN CORPUSCULAR HEMOGLOBIN 30.6 pg (27.0-33.0); MEAN CORPUSCULAR HGB CONC 31.6 g/dl (32.0-36.5); MEAN CORPUSCULAR VOLUME 96.8 fl (80.0-96.0); PLATELET COUNT, AUTOMATED 213 10^3/uL (150-450); WHITE BLOOD COUNT 6.9 10^3/uL (4.0-10.0)
[2018-04-26 07:18] LABS: BLOOD UREA NITROGEN 15 MG/DL (7-18); CALCIUM LEVEL 7.6 MG/DL (8.5-10.1); CARBON DIOXIDE LEVEL 27 MEQ/L (21-32); CHLORIDE LEVEL 107 MEQ/L (98-107); CREATININE FOR GFR 0.85 MG/DL (0.55-1.30); GLOMERULAR FILTRATION RATE > 60.0 (>51); GLUCOSE, FASTING 205 MG/DL (70-100); POTASSIUM SERUM 3.5 MEQ/L (3.5-5.1); SODIUM LEVEL 141 MEQ/L (136-145)
--- NOTE | 2018-04-26 08:22 | IPNPDOC ---
Subjective Date Seen The patient was seen on 04/26/18. Subjective Chief Complaint/HPI Had some orthostatic lightheadedness yesterday with associated nausea with SBP of 89. Percocet was switched to T#3. She feels better today. Got OOB to go to [facility] this am without lightheadedness Constitutional: Denies: Chills, Fever Pulmonary: Denies: Dyspnea, Cough Cardiovascular: Denies: Chest Pain, Palpitations Gastrointestinal: Denies: Nausea, Vomiting, Abdominal Pain, Diarrhea, Constipation Objective Physical Examination General Exam: Positive: Alert, No Acute Distress Chest Exam: Positive: Clear to auscultation; Negative: Rales, Rhonchi, Wheezing Heart Exam: Positive: Rate Normal, Regular Rhythm Abdomen Exam: Positive: Normal bowel sounds, Soft; Negative: Tenderness Extremity Exam: Positive: Other (Left knee bandaged); Negative: Edema Assessment /Plan Problems (1) Orthostatic dizziness Status: Resolved Problem Text: Improved with adjustment of pain meds. Drinking fluids well. BP better this am. Ambulate this am and if feels ok, will plan for d/c home (2) S/P left knee surgery Problem Text: Per Ortho Plan/VTE VTE Prophylaxis Ordered?: Yes (Xarelto) VS, I&O, 24H, Fishbone Vital Signs/I&O Vital Signs Date Time Temp Pulse Resp B/P (MAP) Pulse Ox O2 Delivery O2 Flow Rate FiO2 04/26/18 06:24 18 04/26/18 06:00 98.9 76 116/66 (83) 99 04/24/18 21:15 BIPAP/CPAP 04/24/18 18:00 2.0 I&O- Last 24 Hours up to 6 AM 04/26/18 06:00 Intake Total 960 ml Output Total 0 ml Balance 960 ml Laboratory Data 24H LABS Laboratory Tests 2 04/26/18 06:40: Nucleated Red Blood Cells % (auto) 0.0, Anion Gap 7L, Glomerular Filtration Rate > 60.0, Blood Urea Nitrogen 15, Creatinine 0.85, Sodium Level 141, Potassium Level 3.5, Chloride Level 107, Carbon Dioxide Level 27, Calcium Level 7.6L CBC/BMP Laboratory Tests 04/26/18 06:40 Red Blood Count 3.40 L, Mean Corpuscular Volume 96.8 H, Mean Corpuscular Hemoglobin 30.6, Mean Corpuscular Hemoglobin Concent 31.6 L, Red Cell Distribution Width 12.8, Calcium Level 7.6 L EUGENIO LEWIS PA-C Apr 26, 2018 08:22
[2018-04-26] MEDS ORDERED: ACET30TAB PO (08:39)
--- NOTE | 2018-04-28 12:18 | DSES ---
DATE OF ADMISSION: 04/24/2018 DATE OF DISCHARGE: 04/26/2018 ATTENDING PHYSICIAN: Dr. Franky Kyle ADMISSION DIAGNOSIS: Osteoarthritis left knee. OTHER DIAGNOSES: Lung disease, seasonal allergies. DISCHARGE DIAGNOSES: Osteoarthritis left knee status post left total knee arthroplasty. OPERATION PERFORMED: Left total knee arthroplasty. HISTORY: This is a pleasant 67-year-old patient with progressively worsening left knee pain and stiffness. She has failed to improve with conservative management. She was admitted for elective left total knee arthroplasty. HOSPITAL COURSE: The patient was admitted on the day of surgery and underwent left total knee arthroplasty, which was uneventful. She did well in the postoperative period and her hospital course was without complications. She was up with physical therapy per their protocol, and her pain was controlled on the day of discharge. She was doing well, weightbearing as tolerated on the left lower extremity, and she will follow deep vein thrombosis (DVT) prophylaxis per protocol. She will resume her preoperative medications and diet, along with oral pain medications for pain control. She was given instructions to include but not limited to wound monitoring and activity limitations. She will follow in our office in 10-14 days for surgical followup. Please refer to the medical record for further details.
== END 2018-04-26 09:30 | disposition home or self-care (01) | DRG 470 ==
LOC: M OR 04-24 06:03 → M MS5PR 04-24 11:10
PROVIDERS: ADMIT Orthopaedic Surgery; ATTEND Orthopaedic Surgery
PROC: 0SRD0J9 Replacement of Left Knee Joint with Synthetic Substitute, Cemented, Open Approach (ICD-10-PCS; principal; 2018-04-24 07:30)
DX: M17.12 Unilateral primary osteoarthritis, left knee (principal); R42 Dizziness and giddiness; J30.81 Allergic rhinitis due to animal (cat) (dog) hair and dander; Z79.899 Other long term (current) drug therapy; Z91.040 Latex allergy status; Z88.2 Allergy status to sulfonamides; Z88.8 Allergy status to other drugs, medicaments and biological substances; Z91.048 Other nonmedicinal substance allergy status

== ENCOUNTER → 2018-04-20 | Outpatient (REF) | payer OTHER ==
[~2018-04-20] MED LIST changes: +AMOX875T; +LIDO1PAD; +MUPI2OI
[2018-04-20 16:06] LABS: BASO # 0.1 10^3/uL (0.0-0.2); EOS # 0.3 10^3/uL (0.0-0.50); HEMATOCRIT 34.6 % (36.0-47.0); HEMOGLOBIN 11.2 g/dl (12.0-15.5); LYMPH % 38.7 % (24.0-44.0); MEAN CORPUSCULAR HEMOGLOBIN 30.5 pg (27.0-33.0); MEAN CORPUSCULAR HGB CONC 32.4 g/dl (32.0-36.5); MEAN CORPUSCULAR VOLUME 94.3 fl (80.0-96.0); MONO # 0.4 10^3/uL (0.0-0.8); MONO % 8.4 % (0.0-5.0); NEUTROPHILS # 2.4 10^3/uL (1.8-7.7); NEUTROPHILS % 46.7 % (36.0-66.0); PLATELET COUNT, AUTOMATED 272 10^3/uL (150-450); RED BLOOD COUNT 3.67 10^6/uL (4.00-5.40); WHITE BLOOD COUNT 5.2 10^3/uL (4.0-10.0)
== END ==
LOC: M LABDRAW1 15:50
PROVIDERS: ATTEND Physician Assistant
DX: M17.12 Unilateral primary osteoarthritis, left knee (principal)

== ENCOUNTER → 2018-08-22 | Outpatient (CLI) | payer OTHER ==
[~2018-08-22] MED LIST changes: -/BUDEAQINH; -/PANT40TA PO; +ACET-716 PO; -DULO30CA PO; +DULO30CA9 PO; -NAPR-50 PO; +NAPR-837 PO; +PERC5TAB12 PO; +RHIN3SUS; +VITA100018 PO; -VITA100072 PO; +XARE10TA PO
--- NOTE | 2018-08-22 13:15 | REP ---
Clinical: Pain and arthritis. Technique: Neutral and weightbearing views of the bilateral clavicles and acromioclavicular joints. Findings: Bilateral acromioclavicular joints are within normal limits and stable. No evidence for fracture/injury. Surrounding soft tissues are unremarkable.. Impression: Essentially normal age appropriate and stable bilateral acromioclavicular joints. Electronically Signed by Gregorio Michelle MD 08/22/2018 01:07 P
[2018-08-22 13:25] LABS: HEMATOCRIT 39.3 % (36.0-47.0); HEMOGLOBIN 12.5 g/dl (12.0-15.5); MEAN CORPUSCULAR HEMOGLOBIN 30.9 pg (27.0-33.0); MEAN CORPUSCULAR HGB CONC 31.8 g/dl (32.0-36.5); PLATELET COUNT, AUTOMATED 264 10^3/uL (150-450); RED BLOOD COUNT 4.05 10^6/uL (4.00-5.40); WHITE BLOOD COUNT 7.7 10^3/uL (4.0-10.0)
[2018-08-22 13:58] LABS: ALBUMIN 3.4 GM/DL (3.2-5.2); ALT/SGPT 31 U/L (12-78); BILIRUBIN,TOTAL 0.6 MG/DL (0.2-1.0); BLOOD UREA NITROGEN 14 MG/DL (7-18); CARBON DIOXIDE LEVEL 30 MEQ/L (21-32); CHLORIDE LEVEL 105 MEQ/L (98-107); CREATININE FOR GFR 0.74 MG/DL (0.55-1.30); GLOMERULAR FILTRATION RATE > 60.0 (>51); GLUCOSE, FASTING 77 MG/DL (70-100); POTASSIUM SERUM 4.3 MEQ/L (3.5-5.1); SODIUM LEVEL 141 MEQ/L (136-145); TOTAL PROTEIN 6.6 GM/DL (6.4-8.2)
== END ==
LOC: M LAB 12:32
PROVIDERS: ATTEND Family Medicine
DX: M25.512 Pain in left shoulder (principal); M25.511 Pain in right shoulder; E83.51 Hypocalcemia; E77.8 Other disorders of glycoprotein metabolism; D50.0 Iron deficiency anemia secondary to blood loss (chronic)

== ENCOUNTER → 2019-02-15 | Outpatient (REF) ==
--- NOTE | 2019-02-27 09:34 | REPMRS ---
Patient History The patient states she had a clinical breast exam in January 2019. No known family history of cancer. Benign excisional biopsy of the right breast, 1997. 3D TOMOSYNTHESIS WAS PERFORMED. [facility]%. Digital Mammo Screening Bilat: February 15, 2019 - Exam #: [id number] Bilateral CC and MLO view(s) were taken. Technologist: Candelaria Broussard, Technologist Prior study comparison: February 17, 2018, left breast digital mammo diagnostic unilateral performed at [facility]. February 06, 2018, bilateral digital mammo screening bilat performed at [facility]. FINDINGS: The breast tissue is heterogeneously dense. This may lower the sensitivity of mammography. There has been no change in the appearance of the mammogram from the prior studies. There is a moderate amount of residual fibroglandular tissue which is fairly symmetric. There is no interval development of dominant mass, areas of architectural distortion, or clustered microcalcification typical of malignancy. Assessment: BI-RADS/ACR category 1 mammogram. Negative Mammogram. Recommendation Routine screening mammogram in 1 year (for women over age 40). This mammogram was interpreted with the aid of an FDA-approved computer-aided dectection system. Electronically Signed By: Onur Hunt MD 02/15/19 9901
== END ==
LOC: M RAD 11:04
PROVIDERS: ATTEND Nurse Practitioner Women's Health
DX: Z12.31 Encounter for screening mammogram for malignant neoplasm of breast (principal)

== ENCOUNTER → 2019-02-15 | Outpatient (CLI) | payer OTHER ==
[2019-02-15 12:37] LABS: BASO % 0.7 % (0.0-1.0); EOS # 0.3 10^3/uL (0.0-0.5); EOS % 4.3 % (0.0-3.0); HEMATOCRIT 41.9 % (36.0-47.0); HEMOGLOBIN 13.1 g/dl (12.0-15.5); LYMPH % 34.9 % (24.0-44.0); MEAN CORPUSCULAR HEMOGLOBIN 30.8 pg (27.0-33.0); MEAN CORPUSCULAR HGB CONC 31.3 g/dl (32.0-36.5); MEAN CORPUSCULAR VOLUME 98.6 fl (80.0-96.0); MONO # 0.4 10^3/uL (0.0-0.8); MONO % 7.3 % (0.0-5.0); NEUTROPHILS % 52.6 % (36.0-66.0); PLATELET COUNT, AUTOMATED 259 10^3/uL (150-450); RED BLOOD COUNT 4.25 10^6/uL (4.00-5.40); WHITE BLOOD COUNT 5.8 10^3/uL (4.0-10.0)
[2019-02-15 12:59] LABS: C REACTIVE PROTEIN QUANTITATIV < 0.30 MG/DL (0.00-0.30)
[2019-02-15 13:05] LABS: VITAMIN B12 LEVEL > 2000 PG/ML
[2019-02-15 13:06] LABS: FOLATE 23.1 NG/ML
[2019-02-15 13:13] LABS: HEMOGLOBIN A1c 5.3 %
== END ==
LOC: M LAB 10:57
PROVIDERS: ATTEND Family Medicine
DX: R20.8 Other disturbances of skin sensation (principal); M25.562 Pain in left knee; Z98.84 Bariatric surgery status

== ENCOUNTER 2019-03-19 14:08 | Day surgery (SDC) | payer OTHER ==
[~2019-03-19] VITALS: Ht 156.2 cm; Wt 77.0 kg
[~2019-03-19 14:08] MED LIST changes: +ACET1TAB37 PO; +CETI10CH PO; +CHILCHW27 PO; +IPRA6SP; -LIDO1PAD; +LIDO1PAD TOP; +LIDOCAINE 1% MDV 20ML VIAL SQ PRN; +LR 1,000 ML IV SCH; +MAGN200T10 PO; +OMEG12003 PO; +PROV108A INH; +VITA500079 PO; +ceFAZolin SOD 2 GM in IV 1 EA IV ONE
[2019-03-19] MEDS ORDERED: dexameTHASONE 10 MG/1 ML VIAL PRES.FREE (J1100) ONE ×2 (14:09)
[2019-03-19] MEDS ORDERED: LIDOCAINE 1% MDV 20ML VIAL ONE ×2 (14:09)
[2019-03-19] MEDS ORDERED: ROPIvacaine 0.5% 30 ML INJECTION (J2795 PER 1MG) ONE ×2 (14:09)
[2019-03-19] MEDS ORDERED: propofoL 200 MG/20 ML VIAL As Ordered ONE (14:58)
[2019-03-19] MEDS ORDERED: LIDOCAINE 2% INJ 100 MG/5 ML SDV (FOR ANES.) As Ordered ONE ×2 (14:58→20:53)
[2019-03-19] MEDS ORDERED: ROCURONIUM BROMIDE 50 MG/5 ML VIAL As Ordered ONE ×2 (14:58→18:29)
[2019-03-19] MEDS ORDERED: ONDANSETRON 4MG/2ML VIAL (J2405) As Ordered ONE (14:59)
[2019-03-19] MEDS ORDERED: fentaNYL 100 MCG/2 ML INJECTION (J3010) As Ordered ONE ×3 (14:59→17:53)
[2019-03-19] MEDS ORDERED: MIDAZOLAM INJ 2 MG/2 ML VIAL (J2250) As Ordered ONE ×2 (14:59→16:17)
[2019-03-19] MEDS ORDERED: dexameTHASONE 4 MG/ML 1ML VIAL (J1100) As Ordered ONE (14:59)
[2019-03-19] MEDS ORDERED: SCOPOLAMINE 1MG TRANSDERMAL PATCH As Ordered ONE (16:09)
[2019-03-19] MEDS ORDERED: SCOPOLAMINE 1MG TRANSDERMAL PATCH TOP ONE (16:15)
[2019-03-19] MEDS ORDERED: ETOMIDATE INJ 20MG/10ML VIAL As Ordered ONE (16:17)
[2019-03-19] MEDS ORDERED: EPINEPHrine 1MG/ML INJ 30ML MD-VIAL As Ordered ONE (17:09)
[2019-03-19] MEDS ORDERED: MIDAZOLAM INJ 2 MG/2 ML VIAL (J2250) IV SCH (17:45)
[2019-03-19] MEDS ORDERED: fentaNYL 100 MCG/2 ML INJECTION (J3010) IV SCH (17:45)
[2019-03-19] MEDS ORDERED: KETAMINE HCL 200 MG/20 ML VIAL As Ordered ONE (18:02)
[2019-03-19] MEDS ORDERED: SUGAMMADEX SODIUM 500 MG/5 ML VIAL (BRIDION) As Ordered ONE (18:04)
[2019-03-19] MEDS ORDERED: ACETAMINOPHEN 1000MG 100ML IV BTL (OFIRMEV) (J0131 PER 10MG) As Ordered ONE (18:04)
[2019-03-19] MEDS ORDERED: KETOROLAC 60 MG/2 ML VIAL (J1885) As Ordered ONE (18:04)
[2019-03-19] MEDS ORDERED: METOCLOPRAMIDE INJ 10MG/2ML VIAL (J2765) As Ordered ONE (18:04)
[2019-03-19] MEDS ORDERED: LIDOCAINE 1% MDV 20ML VIAL As Ordered ONE (18:47)
[2019-03-19] MEDS ORDERED: HYDROMORPHONE HCL 0.5 MG/ 0.5 ML SYRINGE (J1170 PER 1) IV PRN (22:00)
[2019-03-19] MEDS ORDERED: PERCOCET 5MG/325MG TAB PO PRN (22:00)
[2019-03-19] MEDS ORDERED: LR 1,000 ML IV SCH ×2 (22:00→23:00)
[2019-03-19] MEDS ORDERED: ONDANSETRON 4MG/2ML VIAL (J2405) IV PRN ×2 (22:00→23:00)
[2019-03-19] MEDS ORDERED: fentaNYL 100 MCG/2 ML INJECTION (J3010) IV PRN (22:00)
[2019-03-19] MEDS ORDERED: oxyCODONE 5MG TAB PO PRN (23:00)
[2019-03-19] MEDS ORDERED: FAMOTIDINE 20 MG TAB PO PRN (23:00)
[2019-03-19] MEDS ORDERED: MORPHINE 2 MG/ML 1ML VIAL (J2270) IV PRN (23:00)
[2019-03-19 23:30] VITALS: BP 129/71
[2019-03-20] VITALS: BP 127/71
[2019-03-20 01:00] VITALS: BP 125/70
[2019-03-20 02:00] VITALS: BP 124/70
[2019-03-20 03:00] VITALS: BP 123/70
[2019-03-20 04:00] VITALS: BP 125/55
[2019-03-20] MEDS ORDERED: ACETAMINOPHEN TAB 650MG DOSE (2X325MG) PO PRN (07:00)
[2019-03-20 08:00] VITALS: BP 124/76
[2019-03-20] MEDS ORDERED: MORPHINE 15 MG SA TAB PO SCH (09:00)
--- NOTE | 2019-03-20 17:02 | RO ---
DATE OF PROCEDURE: 03/19/2019 PREOPERATIVE DIAGNOSES: 1. Right shoulder rotator cuff tear. 2. Right shoulder impingement. 3. Right shoulder superior labral tear. 4. Right shoulder acromioclavicular (AC) joint arthritis. POSTOPERATIVE DIAGNOSES: 1. Right shoulder rotator cuff tear. 2. Right shoulder impingement. 3. Right shoulder superior labral tear. 4. Right shoulder acromioclavicular (AC) joint arthritis. 5. Right shoulder glenohumeral chondromalacia. PROCEDURE: 1. Right shoulder arthroscopic rotator cuff repair. 2. Right shoulder arthroscopic chondroplasty, labral debridement and synovectomy. 3. Right shoulder arthroscopic subacromial decompression. 4. Right shoulder open subpectoral biceps tenodesis. 5. Right shoulder open distal clavicle exostectomy. SURGEON: Dr. Keagan Squires MINERAL ECONOMIST: CHRISSY London ANESTHESIA: General. Preoperative nerve block. IV FLUIDS: Lactated Ringer's. ESTIMATED BLOOD LOSS: 25 mL. IMPLANTS: Arthrex 4.75 mm PEEK SwiveLock anchor times two, Arthrex 5.5 mm Corkscrew Artemus times one, Arthrex proximal biceps tenodesis button times one Arthrex 3 mm SutureTak times one. CLOSURE: Monocryl, nylon. DESCRIPTION OF PROCEDURE: Patient identified in the preoperative holding area. The right shoulder marked by myself. She had an interscalene nerve block by anesthesia. She was brought to the operating room, placed supine on a well-padded operating room (OR) table. General anesthesia induced. Exam under anesthesia revealed 180 degrees of forward flexion, 90 of external rotation. No increased anterior or posterior translation. She was then placed in a left side down lateral decubitus position on the beanbag with an axillary roll and all bony prominences were well padded. She had bilateral sequential compression devices (SCDs) for deep vein thrombosis (DVT) prophylaxis. The right arm was placed into Arthrex STaR Sleeve lateral decubitus traction device. The right shoulder was then prepped and draped in the normal sterile fashion with Chloraprep. She received appropriate IV antibiotics within 1 hour of incision. Anuja Kyle was present for the entire procedure and participated in all essential portions of the procedure. This included patient positioning, draping, holding the arthroscope, holding retractors during the biceps tenodesis and assisting with the whip stitch, assisting with the rotator cuff repair by holding the camera, retrieving sutures arthroscopically and assisting with anchor placement. After a time-out was performed per hospital protocol, the right shoulder was insufflated with lactated Ringer's. A standard posterior viewing portal made with 11-blade. 30 degree arthroscope introduced into the joint and diagnostic arthroscopy revealing tearing of the superior labrum with degenerative tearing of the anterior labrum. There was grade 1 to 2 chondromalacia in the humeral head, primarily grade 1 to 2 in the glenoid with an area of grade 2 in the far anterior glenoid. There was a high-grade partial articular supraspinatus tear, and there was a partial upper border tear of the subscapularis. There was actual tearing of the long head of the biceps. Anterior working portal was established to the rotator interval, and a rotator interval release performed with radiofrequency cautery. On probing the long head of the biceps, I confirmed there was intra-articular tearing, so tenotomy was performed with the meniscal biter. There was lift off of the upper one-third of the subscapularis, accessory superolateral portal was created, and the shaver was used to clear soft tissue and decorticate the lesser tuberosity. The Scorpion was used to pass FiberTape through the healthier portion of the subscapularis that was loaded through a 4.75 mm PEEK SwiveLock anchor. The appropriate awl was used to create a socket, lesser tuberosity, the anchor was docked, sutures tensioned, anchor malleted, then inserted by hand with excellent fixation and this nicely restored the resting tension of the subscapularis. I then performed a debridement of the anterior and superior labrum with the shaver, a chondroplasty of the humeral head and glenoid with a shaver. I debrided the partial articular tear. I estimated this to be about a two-thirds partial articular tear. I then proceeded with an open biceps tenodesis, 15 blade used to make an incision just lateral to the axilla. Metzenbaum scissor dissection as well as cautery down to the biceps fascia, which was carefully opened with cautery. The right angle clamp was used to easily withdraw the tendon through the incision. Then, the proximal biceps tenodesis kit was opened. A running locking whip stitch was placed with the FiberLoop and excess tendon trimmed and sent to pathology. The sutures were loaded through the button per routine. A unicortical drill hole was made with the spade tip drill bit within the bicipital groove. Irrigation used to remove bony debris. The button was passed through the drill hole on its director of reservations, sutures were toggled which flipped the button and then a curve-free needle was used to pass one limb of suture back through the tendon and knots were tied by hand to lock the construct in place. This nicely restored the resting tension. A spinal needle was used to determine the appropriate location for a possible percutaneous partial articular supraspinatus tendon avulsion (PASTA) repair. The ring curette was used to clear soft tissue off the greater tuberosity from the articular surface. The percutaneous SutureTak kit was then opened, and I percutaneously placed two knotless 3 mm SutureTaks just off the articular surface, one anterior, one further posterior. The posterior anchor unfortunately had poor fixation and when testing the strength of the anchor and pulling on the sutures, it unloaded. I, therefore, placed another anchor, also a knotless SutureTak. This one further posterior seemed to have better bone when drilling. Then in the bursal surface, one suture from each anchor was withdrawn with a CrabClaw for the knotless PASTA technique. However, when I attempted to load the anterior sutures through the posterior anchor, unfortunately the posterior anchor ripped out of bone so that technique had to be abandoned entirely. At this point, excess suture was cut out of the joint with the arthroscopic reel cutter. From the subacromial space, the cautery was used to create a full-thickness tear. I placed the 5.5 CorkScrew just off the articular surface. This was double-loaded with SutureTape. These were passed in a horizontal mattress fashion from anterior to posterior and then knots were tied using alternating half hitches. These four limbs of suture plus an additional FiberLink placed through the far posterior portion of the tear were then brought out to a single 4.75 SwiveLock and that anchor was placed per routine, creating a nice double row repair - one medial, one lateral. The arthroscope was then placed in the lateral portal. There were no dog ears. There was no lift off or buckling. The shoulder was gently rotated, and the cuff moved as a unit. I also made a 1 cm incision over a subcutaneous spur at the anterior distal clavicle, and a rongeur was used to remove that osteophyte. The incision was irrigated and then closed with a nylon suture. I should have mentioned that the biceps tenodesis incision was closed with #2-0 Vicryl, #2-0 Vicryl and a running Monocryl. Steri-Strips were placed at the end of the case. I also injected 10 mL of 0.50% Marcaine without epinephrine at the biceps tenodesis incision. An extensive bursectomy was also performed. The shoulder was irrigated and drained. Portals closed with nylon suture. Bulky sterile dressing applied. She was then extubated, transferred to the post-anesthesia care unit (PACU) in stable condition.
== END 2019-03-20 10:29 | disposition home or self-care (01) ==
LOC: M SDC 14:08 → ENRESERVTM 22:32 → ENRESERVDT 22:32 → M MS5PR 23:07 → M SDC 03-20 10:29
PROVIDERS: ATTEND Orthopaedic Surgery
DX: M75.101 Unspecified rotator cuff tear or rupture of right shoulder, not specified as traumatic (principal); M25.311 Other instability, right shoulder; S43.431A Superior glenoid labrum lesion of right shoulder, initial encounter; M19.011 Primary osteoarthritis, right shoulder; M94.211 Chondromalacia, right shoulder; X58.XXXA Exposure to other specified factors, initial encounter; Y92.89 Other specified places as the place of occurrence of the external cause; M75.81 Other shoulder lesions, right shoulder; J45.909 Unspecified asthma, uncomplicated; K21.9 Gastro-esophageal reflux disease without esophagitis; M19.90 Unspecified osteoarthritis, unspecified site; M54.9 Dorsalgia, unspecified; G47.33 Obstructive sleep apnea (adult) (pediatric); I49.8 Other specified cardiac arrhythmias; Z79.899 Other long term (current) drug therapy; Z79.51 Long term (current) use of inhaled steroids; Z91.040 Latex allergy status; Z91.018 Allergy to other foods; Z88.2 Allergy status to sulfonamides; Z88.8 Allergy status to other drugs, medicaments and biological substances; Z88.4 Allergy status to anesthetic agent; Z86.14 Personal history of Methicillin resistant Staphylococcus aureus infection
CPT/HCPCS: 23120; 23430; 29820; 29823; 29826; 29827; 64415; 88304; C1713; J0131; J0690; J1100; J1885; J2250; J2405; J2765; J2795; J3010

== ENCOUNTER → 2019-09-28 | Outpatient (REF) | payer OTHER ==
[~2019-09-28] MED LIST changes: +ACET650T61 PO; -CHILCHW27 PO; +CHILCHW28 PO; -LIDOCAINE 1% MDV 20ML VIAL SQ PRN; -LR 1,000 ML IV SCH; -TYLE650T35 PO; -ceFAZolin SOD 2 GM in IV 1 EA IV ONE
[2019-10-27 03:23] LABS: HEMATOCRIT 41.8 % (36.0-47.0); HEMOGLOBIN 13.2 g/dl (12.0-15.5); MEAN CORPUSCULAR HEMOGLOBIN 31.2 pg (27.0-33.0); MEAN CORPUSCULAR HGB CONC 31.6 g/dl (32.0-36.5); MEAN CORPUSCULAR VOLUME 98.8 fl (80.0-96.0); PLATELET COUNT, AUTOMATED 239 10^3/uL (150-450); RED BLOOD COUNT 4.23 10^6/uL (4.00-5.40); WHITE BLOOD COUNT 6.9 10^3/uL (4.0-10.0)
[2019-11-12 21:20] LABS: ALBUMIN 3.3 GM/DL (3.2-5.2); ALT/SGPT 33 U/L (12-78); BILIRUBIN,TOTAL 0.4 MG/DL (0.2-1.0); BLOOD UREA NITROGEN 16 MG/DL (7-18); CALCIUM LEVEL 8.6 MG/DL (8.5-10.1); CARBON DIOXIDE LEVEL 30 MEQ/L (21-32); CHLORIDE LEVEL 108 MEQ/L (98-107); CHOLESTEROL LEVEL 159 MG/DL (<200); CHOLESTEROL RISK RATIO 2.092 (<5); CREATININE FOR GFR 0.78 MG/DL (0.55-1.30); GLOMERULAR FILTRATION RATE > 60.0 (>51); GLUCOSE, FASTING 79 MG/DL (70-100); HDL CHOLESTEROL 76 MG/DL (>40); LDL CHOLESTEROL 54 MG/DL (<100); NON-HDL-C 83 MG/DL; POTASSIUM SERUM 4.2 MEQ/L (3.5-5.1); SODIUM LEVEL 143 MEQ/L (136-145); THYROID STIMULATING HORMONE 0.619 uIU/ML (0.358-3.740); TOTAL 25(OH) VITAMIN D 43.2 NG/ML (30.0-100.0); TOTAL PROTEIN 6.7 GM/DL (6.4-8.2); TRIGLYCERIDES LEVEL 146 MG/DL (<150)
== END ==
LOC: M LABWUC 07:28
PROVIDERS: ATTEND Family Medicine
DX: Z13.220 Encounter for screening for lipoid disorders (principal); I49.8 Other specified cardiac arrhythmias; L29.9 Pruritus, unspecified; J30.9 Allergic rhinitis, unspecified; J45.909 Unspecified asthma, uncomplicated; E55.9 Vitamin D deficiency, unspecified

== ENCOUNTER → 2020-01-24 | Outpatient (REF) | payer OTHER ==
[2020-01-24 17:30] LABS: HEMATOCRIT 41.8 % (36.0-47.0); MEAN CORPUSCULAR HEMOGLOBIN 30.7 pg (27.0-33.0); MEAN CORPUSCULAR HGB CONC 31.1 g/dl (32.0-36.5); MEAN CORPUSCULAR VOLUME 98.8 fl (80.0-96.0); PLATELET COUNT, AUTOMATED 231 10^3/uL (150-450); RED BLOOD COUNT 4.23 10^6/uL (4.00-5.40); WHITE BLOOD COUNT 5.5 10^3/uL (4.0-10.0)
[2020-01-24 17:42] LABS: INR 0.97; PARTIAL THROMBOPLASTIN TIME 30.2 SECONDS (24.2-38.5); PROTHROMBIN TIME 13.1 SECONDS (12.5-14.3)
[2020-01-24 18:54] LABS: ALBUMIN 3.4 GM/DL (3.2-5.2); ALT/SGPT 24 U/L (12-78); BILIRUBIN,TOTAL 0.5 MG/DL (0.2-1.0); BLOOD UREA NITROGEN 17 MG/DL (7-18); CARBON DIOXIDE LEVEL 31 MEQ/L (21-32); CHLORIDE LEVEL 108 MEQ/L (98-107); CREATININE FOR GFR 0.77 MG/DL (0.55-1.30); GLOMERULAR FILTRATION RATE > 60.0 (>51); GLUCOSE, FASTING 96 MG/DL (70-100); POTASSIUM SERUM 5.5 MEQ/L (3.5-5.1); SODIUM LEVEL 142 MEQ/L (136-145); TOTAL PROTEIN 6.4 GM/DL (6.4-8.2)
== END ==
LOC: M SFHCPLAZ 12:04
PROVIDERS: ATTEND Family Medicine
DX: Z01.818 Encounter for other preprocedural examination (principal); G47.33 Obstructive sleep apnea (adult) (pediatric); D50.0 Iron deficiency anemia secondary to blood loss (chronic); J45.909 Unspecified asthma, uncomplicated

== ENCOUNTER → 2020-01-31 | Outpatient (CLI) | payer OTHER ==
[~2020-01-31] MED LIST changes: +D31000TA2 PO
== END ==
LOC: M LABSMTC 10:02
PROVIDERS: ATTEND Anesthesiology
DX: Z01.812 Encounter for preprocedural laboratory examination (principal); Z20.828 Contact with and (suspected) exposure to other viral communicable diseases

== ENCOUNTER 2020-02-04 11:50 | Day surgery (SDC) | payer OTHER ==
[~2020-02-04] VITALS: Ht 162.6 cm; Wt 80.7 kg
[~2020-02-04 11:50] MED LIST changes: +LIDOCAINE 1% MDV 20ML VIAL SQ PRN; +LR 1,000 ML IV ONE; +ceFAZolin SOD 2 GM in IV 1 EA IV ONE
[2020-02-04] MEDS ORDERED: LIDOCAINE 1% MDV 20ML VIAL As Ordered ONE (12:23)
[2020-02-04] MEDS ORDERED: MIDAZOLAM INJ 2MG/2ML VIAL (J2250 PER 1MG) As Ordered ONE ×2 (12:36→13:09)
[2020-02-04] MEDS ORDERED: PHENYLephrine HCL 500 MCG/5 ML (100MCG/ML) SYRINGE (J2370) As Ordered ONE ×3 (12:37→14:56)
[2020-02-04] MEDS ORDERED: fentaNYL 250 MCG/5 ML INJECTION (J3010) As Ordered ONE (12:37)
[2020-02-04] MEDS ORDERED: ePHEDrine SULFATE 25 MG/5 ML(5MG/ML) SYRINGE As Ordered ONE ×3 (12:37→14:56)
[2020-02-04] MEDS ORDERED: dexameTHASONE 4 MG/ML 1ML VIAL (J1100 PER 1MG) As Ordered ONE ×3 (12:37→14:39)
[2020-02-04] MEDS ORDERED: ONDANSETRON 4MG/2ML VIAL As Ordered ONE ×2 (12:37→14:58)
[2020-02-04] MEDS ORDERED: SUGAMMADEX SODIUM 500 MG/5 ML VIAL (BRIDION) As Ordered ONE ×2 (12:37→15:01)
[2020-02-04] MEDS ORDERED: ACETAMINOPHEN 1000MG 100ML IV BTL (OFIRMEV) (J0131 PER 10MG) As Ordered ONE (12:38)
[2020-02-04] MEDS ORDERED: LIDOCAINE 2% 100MG/5ML SDV (FOR ANES.) As Ordered ONE (12:38)
[2020-02-04] MEDS ORDERED: propofoL 200 MG/20 ML VIAL As Ordered ONE (12:38)
[2020-02-04] MEDS ORDERED: ROCURONIUM BROMIDE 50 MG/5 ML VIAL As Ordered ONE ×3 (12:38→16:16)
[2020-02-04] MEDS ORDERED: fentaNYL 100 MCG/2 ML INJECTION (J3010) As Ordered ONE ×2 (13:09→16:45)
[2020-02-04] MEDS ORDERED: ROPIvacaine 0.5% 30ML INJECTION (J2795 PER 1MG) As Ordered ONE (13:22)
[2020-02-04] MEDS ORDERED: EPINEPHrine INJ 1 MG/ML 1ML AMP As Ordered ONE (13:22)
[2020-02-04] MEDS ORDERED: fentaNYL 100 MCG/2 ML INJECTION (J3010) IV PRN ×2 (14:00→17:45)
[2020-02-04] MEDS ORDERED: dexameTHASONE 10MG/1ML VIAL PRES.FREE (J1100 PER 1MG) XX ONE (14:00)
[2020-02-04] MEDS ORDERED: MIDAZOLAM INJ 2MG/2ML VIAL (J2250 PER 1MG) IV PRN (14:00)
[2020-02-04] MEDS ORDERED: ROPIvacaine 0.5% 30ML INJECTION (J2795 PER 1MG) XX ONE (14:00)
[2020-02-04] MEDS ORDERED: SCOPOLAMINE 1MG TRANSDERMAL PATCH As Ordered ONE (14:03)
[2020-02-04] MEDS ORDERED: ETOMIDATE INJ 20MG/10ML VIAL As Ordered ONE (14:14)
[2020-02-04] MEDS ORDERED: SCOPOLAMINE 1MG TRANSDERMAL PATCH TOP ONE (14:15)
[2020-02-04] MEDS ORDERED: METOCLOPRAMIDE INJ 10MG/2ML VIAL (J2765 PER 1) As Ordered ONE (14:58)
[2020-02-04] MEDS ORDERED: LR 1,000 ML IV SCH ×2 (17:45→18:00)
[2020-02-04] MEDS ORDERED: ONDANSETRON 4MG/2ML VIAL IV PRN (17:45)
--- NOTE | 2020-02-04 17:52 | REP ---
INDICATION: RIGHT ANKLE INSTABILITY, MINI C-ARM. COMPARISON: None. TECHNIQUE: Five views. 75.2 seconds of fluoroscopy time is reported. FINDINGS: A sequence of 5 last image hold fluoroscopically obtained spot radiographs of the ankle and hindfoot are presented from orthopedic procedure. No laterality markers visible. IMPRESSION: Procedural imaging. <Electronically signed by Tiago Malone > 02/04/20 [id number]
[2020-02-04 19:45] VITALS: BP 150/76
--- NOTE | 2020-03-03 14:09 | RO ---
OPERATIVE NOTE DATE OF OPERATION: 02/04/2020 PREOPERATIVE DIAGNOSIS: Right ankle instability. POSTOPERATIVE DIAGNOSES: 1. Right ankle instability. 2. Peroneus brevis and peroneus longus partial tears. 3. Distal fibula nonunion. PROCEDURES: 1. Excision distal fibular nonunion fragment. 2. Peroneal brevis and longus debridement and repair. 3. Lateral ligament reconstruction. 4. Use of mini C-arm. SURGEON: Sara Colvin MD ASSIST: David Guadalupe PA-C ANESTHESIA: General endotracheal with popliteal nerve block. SPECIMEN: Distal fibula. EBL: 50 mL. COMPLICATIONS: None. CONDITION: Stable to recovery. INDICATIONS: Elsie Benjamin is a 59-year-old female who has had longstanding pain and instability to her right ankle. The instability is quite severe and she is able to sublux her ankle. She has baseline moderate tibiotalar joint arthritis which is only mildly symptomatic. Risks and benefits of surgery were discussed with her in detail and include but are not limited to infection, damage to nerves and blood vessels, continued pain and stiffness, need for additional procedures. Informed consent was obtained. PROCEDURE: The patient was met in the preoperative holding area where the right lower extremity was marked as the correct operative side. She was taken to the operating room where the right lower extremity was prepped and draped in normal sterile fashion. An official time out was held where the correct patient, operative side and operative procedure were verified. Antibiotics were given within 60 minutes prior to incision. The leg was exsanguinated and tourniquet was inflated to 250 mmHg. Incision was made over the lateral aspect of the ankle in the region of the distal fibula and peroneal tendons. After further dissection it was found that there was a small nonunion of distal fibula fracture that was mainly apparent on her MRI and was chronic. This measured about 1 cm in diameter, it was removed. This did somewhat limit the region I had to use for the lateral ligament reconstruction. I then explored the peroneal tendons and there was found to be partial tearing both of the peroneus longus and brevis. There was also significant tenosynovitis. Both tendons were debrided. I repaired both the peroneus longus and peroneus brevis using 3-0 Vicryl. I used a running stitch in order to tubularize the tendons. Copious irrigation was performed at this point. Next I proceeded with lateral ligament reconstruction. The patient's ankle tended to sublux extremely easily and was significantly unstable. I incised the lateral ligaments and capsule which were taken down as a cuff of tissue off the distal fibula. This tissue was quite thin and inadequate. A Brostrom procedure would not be enough to give her any significant stability. Following that I used the Arth[employer] Lateral Ligament Reconstruction Kit. I also selected a 25 mm semitendinosus allograft. The graft end was whip stitched and it was secured into the talus using Bio-Tenodesis screw. I then drilled a tunnel through the fibula at a diagonal from the proximal distal direction and the tendon was passed through that. This was slightly more proximal in the fibula then I would have preferred given I had to remove the nonunion fragment earlier. I further secured this with Arthrex Bio-Tenodesis screw in the fibula. Finally the graft was secured into the calcaneal tuberosity in pull-through fashion again using Bio-Tenodesis screw. I used the mini C-arm throughout the case to choose the appropriate tunnel location. Final x-rays found that the ankle was satisfactorily reduced without any deformity. It was stable to anterior drawer and talar tilt testing. Copious irrigation was performed. I closed the superior peroneal retinaculum over the peroneal tendons using #0 Vicryl. There was good tendon motion after this without any subluxation. Soft tissues were closed with 3-0 Vicryl and skin was closed with 3-0 nylon. The patient was placed into a well padded splint. She was extubated and transferred to the recovery room in stable condition. David Guadalupe PA-C was present for the entire case and was essential for soft tissue retraction, hardware placement and overall decrease in tourniquet time. PLAN: The patient will be nonweightbearing on the right lower extremity for six weeks. I will see her back in two weeks for suture removal and placement into a cast or splint. She will be on Aspirin for DVT prophylaxis. RENAN
== END 2020-02-04 20:02 | disposition home or self-care (01) ==
LOC: M SDC 11:50
PROVIDERS: ATTEND Orthopaedic Surgery
DX: M25.371 Other instability, right ankle (principal); K21.9 Gastro-esophageal reflux disease without esophagitis; D64.9 Anemia, unspecified; G47.30 Sleep apnea, unspecified; J45.909 Unspecified asthma, uncomplicated; Z79.899 Other long term (current) drug therapy; Z88.2 Allergy status to sulfonamides; Z88.8 Allergy status to other drugs, medicaments and biological substances; Z91.040 Latex allergy status; Z91.010 Allergy to peanuts
CPT/HCPCS: 27658; 27695; 64445; 76000; 88300; 88304; C1713; C1762; J0131; J0690; J1100; J2250; J2370; J2405; J2765; J3010

== ENCOUNTER → 2020-04-02 | Outpatient (REF) | payer OTHER ==
[~2020-04-02] MED LIST changes: -LIDOCAINE 1% MDV 20ML VIAL SQ PRN; -LR 1,000 ML IV ONE; -ceFAZolin SOD 2 GM in IV 1 EA IV ONE
== END ==
LOC: M SFHCADAM 15:01
PROVIDERS: ATTEND Family Medicine
DX: M67.90 Unspecified disorder of synovium and tendon, unspecified site (principal)

== ENCOUNTER → 2020-05-08 | Outpatient (CLI) | payer OTHER ==
--- NOTE | 2020-05-08 11:30 | REPMRS ---
Patient History The patient states she had a clinical breast exam in February 2020. Patient is postmenopausal. No known family history of cancer. Benign excisional biopsy of the right breast, 1997. Taking estrogen for 8 years. Digital Woman Screen Mammo: May 08, 2020 - Exam #: [id number] Bilateral CC and MLO view(s) were taken. Technologist: RT Vickie Prior study comparison: February 15, 2019, bilateral digital mammo screening bilat, performed at [facility]. February 17, 2018, left breast digital mammo diagnostic unilateral, performed at [facility]. February 06, 2018, bilateral digital mammo screening bilat, performed at [facility]. FINDINGS: The breast tissue is heterogeneously dense. This may lower the sensitivity of mammography. The Volpara volumetric breast density category is: C. There is a moderate amount of heterogeneously dense fibroglandular tissue which is fairly symmetric. There is no interval development of dominant mass, architectural distortion, or grouped microcalcification typical of malignancy. There has been no change in the appearance of the mammogram from the prior studies. 3-D tomosynthesis shows no additional findings. Assessment: BI-RADS/ACR category 1 mammogram. Negative Mammogram. Recommendation Routine screening mammogram of both breasts in 1 year (for women over age 40). This patient's [facility] Lifetime Breast Cancer RIsk is estimated at 8.5 %. This mammogram was interpreted with the aid of an FDA-approved computer-aided dectection system. Electronically Signed By: Tiago Malone MD 05/08/20 [id number]
== END ==
LOC: M WHC 10:37
PROVIDERS: ATTEND Obstetrics & Gynecology
DX: Z12.31 Encounter for screening mammogram for malignant neoplasm of breast (principal); Z86.018 Personal history of other benign neoplasm

== ENCOUNTER → 2020-08-19 | Outpatient (REF) | payer OTHER | LOC: M SFHCRHEU 14:42 | PROVIDERS: ATTEND Internal Medicine | DX: M79.10 Myalgia, unspecified site (principal); R53.83 Other fatigue; M25.50 Pain in unspecified joint ==

== ENCOUNTER → 2020-08-20 | Outpatient (CLI) | payer OTHER ==
[2020-08-20 15:51] LABS: BASO # 0.1 10^3/uL (0.0-0.2); EOS # 0.4 10^3/uL (0.0-0.5); EOS % 5.5 % (0.0-3.0); HEMATOCRIT 41.8 % (36.0-47.0); HEMOGLOBIN 13.4 g/dl (12.0-15.5); LYMPH # 2.2 10^3/uL (1.5-5.0); LYMPH % 31.7 % (24.0-44.0); MEAN CORPUSCULAR HEMOGLOBIN 31.2 pg (27.0-33.0); MEAN CORPUSCULAR HGB CONC 32.1 g/dl (32.0-36.5); MEAN CORPUSCULAR VOLUME 97.4 fl (80.0-96.0); MONO # 0.6 10^3/uL (0.0-0.8); NEUTROPHILS # 3.6 10^3/uL (1.5-8.5); NEUTROPHILS % 52.7 % (36.0-66.0); PLATELET COUNT, AUTOMATED 295 10^3/uL (150-450); RED BLOOD COUNT 4.29 10^6/uL (4.00-5.40); WHITE BLOOD COUNT 6.9 10^3/uL (4.0-10.0)
--- NOTE | 2020-08-20 15:54 | REP ---
INDICATION: EFFUSION, UNSPECIFIED JOINT *LABS 1ST*. COMPARISON: None. TECHNIQUE: AP view of the pelvis with neutral and frog-lateral views of the right and left hip. FINDINGS: No evidence for acute fracture or dislocation. The bilateral hip joints are relatively symmetric. 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 Surrounding soft tissues are grossly normal. 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
[2020-08-20 16:10] LABS: ERYTHROCYTE SEDIMENTATION RATE 9 mm/hr (0-30)
[2020-08-20 16:29] LABS: ALBUMIN 3.5 GM/DL (3.2-5.2); ALT/SGPT 24 U/L (12-78); BILIRUBIN,DIRECT 0.1 MG/DL (0.0-0.2); BILIRUBIN,TOTAL 0.5 MG/DL (0.2-1.0); BLOOD UREA NITROGEN 23 MG/DL (7-18); CALCIUM LEVEL 8.8 MG/DL (8.8-10.2); CARBON DIOXIDE LEVEL 29 MEQ/L (21-32); CHLORIDE LEVEL 105 MEQ/L (98-107); CPK CREATINE PHOSPHOKINASE 107 U/L (26-192); CREATININE FOR GFR 0.78 MG/DL (0.55-1.30); GLOMERULAR FILTRATION RATE > 60.0 (>45); GLUCOSE, FASTING 101 MG/DL (70-100); IRON (FE) 105 UG/DL (50-170); MAGNESIUM LEVEL 2.4 MG/DL (1.8-2.4); PHOSPHORUS LEVEL 4.1 MG/DL (2.5-4.9); POTASSIUM SERUM 4.4 MEQ/L (3.5-5.1); RHEUMATOID FACTOR QUANT < 10.0 IU/ML (<15.0); SODIUM LEVEL 139 MEQ/L (136-145); TOTAL PROTEIN 6.7 GM/DL (6.4-8.2)
[2020-08-20 16:34] LABS: TOTAL 25(OH) VITAMIN D 51.9 NG/ML (30.0-100.0); VITAMIN B12 LEVEL > 2000 PG/ML (247-911)
[2020-08-20 16:35] LABS: FOLATE > 24.0 NG/ML (>5.4)
== END ==
LOC: M LAB 15:03
PROVIDERS: ATTEND Internal Medicine
DX: M16.0 Bilateral primary osteoarthritis of hip (principal); M25.40 Effusion, unspecified joint; R53.83 Other fatigue; M79.10 Myalgia, unspecified site; M25.50 Pain in unspecified joint; M15.9 Polyosteoarthritis, unspecified

== ENCOUNTER → 2020-09-02 | Outpatient (CLI) | payer OTHER | LOC: M LAB 10:58 | PROVIDERS: ATTEND Internal Medicine | DX: R53.83 Other fatigue (principal) ==

== ENCOUNTER → 2021-02-02 | Outpatient (REF) | payer BC | LOC: M SFHCADAM 15:13 | PROVIDERS: ATTEND Internal Medicine | DX: R74.8 Abnormal levels of other serum enzymes (principal); R68.89 Other general symptoms and signs ==

== ENCOUNTER → 2021-07-03 | Outpatient (CLI) | payer BC ==
[~2021-07-03] MED LIST changes: -D31000TA2 PO; +VITA100093 PO
== END ==
LOC: M WHC 11:00
PROVIDERS: ATTEND Obstetrics & Gynecology
DX: Z12.31 Encounter for screening mammogram for malignant neoplasm of breast (principal)

== ENCOUNTER → 2022-02-08 | Outpatient (CLI) | payer BC, MEDICARE ==
[~2022-02-08] MED LIST changes: +ALBU6.7H6 INH; -PROV108A INH
[2022-02-08 13:46] LABS: HEMATOCRIT 39.9 % (36.0-47.0); HEMOGLOBIN 12.3 g/dl (12.0-15.5); MEAN CORPUSCULAR HEMOGLOBIN 30.4 pg (27.0-33.0); MEAN CORPUSCULAR HGB CONC 30.8 g/dl (32.0-36.5); MEAN CORPUSCULAR VOLUME 98.8 fl (80.0-96.0); PLATELET COUNT, AUTOMATED 312 10^3/uL (150-450); RED BLOOD COUNT 4.04 10^6/uL (4.00-5.40); WHITE BLOOD COUNT 6.2 10^3/uL (4.0-10.0)
[2022-02-08 14:10] LABS: ALBUMIN 3.3 G/DL (3.2-5.2); ALKALINE PHOSPHATASE 104 U/L (46-116); ALT/SGPT 33 U/L (7.0-40); AST/SGOT 28 U/L (<34); BILIRUBIN,TOTAL 0.4 MG/DL (0.3-1.2); BLOOD UREA NITROGEN 14 MG/DL (9-23); CALCIUM LEVEL 8.9 MG/DL (8.3-10.6); CARBON DIOXIDE LEVEL 32 MMOL/L (20-31); CHLORIDE LEVEL 104 MMOL/L (98-107); CHOLESTEROL LEVEL 167 MG/DL (<200); CHOLESTEROL RISK RATIO 2.36 (<5); CREATININE FOR GFR 0.77 MG/DL (0.55-1.30); GLOMERULAR FILTRATION RATE > 60.0 (>45); GLUCOSE, FASTING 98 MG/DL (74-106); HDL CHOLESTEROL 70.6 MG/DL (>40); LDL CHOLESTEROL 71.4 MG/DL (<100); NON-HDL-C 96 MG/DL; POTASSIUM SERUM 4.3 MMOL/L (3.5-5.1); SODIUM LEVEL 141 MMOL/L (136-145); TOTAL PROTEIN 6.4 G/DL (5.7-8.2); TRIGLYCERIDES LEVEL 125 MG/DL (<150)
== END ==
LOC: M WUC 10:06
PROVIDERS: ATTEND Family Medicine
DX: G47.33 Obstructive sleep apnea (adult) (pediatric) (principal); E55.9 Vitamin D deficiency, unspecified; E83.51 Hypocalcemia; Z13.220 Encounter for screening for lipoid disorders

== ENCOUNTER → 2022-09-09 | Outpatient (REF) | payer BC, MEDICARE ==
[~2022-09-09] MED LIST changes: +MONT-5 PO; -SING10TA32 PO
== END ==
LOC: M SFHCWAGY 18:10
PROVIDERS: ATTEND Nurse Practitioner Family
DX: Z12.4 Encounter for screening for malignant neoplasm of cervix (principal)
CPT/HCPCS: 87624; G0123

== ENCOUNTER → 2022-11-08 | Outpatient (CLI) | payer MEDICARE | LOC: M WHC 12:18 | PROVIDERS: ATTEND Nurse Practitioner Family | DX: Z12.31 Encounter for screening mammogram for malignant neoplasm of breast (principal) ==

== ENCOUNTER → 2023-02-07 | Outpatient (CLI) | payer MEDICARE ==
[~2023-02-07] MED LIST changes: +NAPR220C14 PO; +ONE-1TAB PO
[2023-02-07 10:00] LABS: HEMATOCRIT 38.7 % (36.0-47.0); HEMOGLOBIN 12.3 g/dl (12.0-15.5); MEAN CORPUSCULAR HEMOGLOBIN 30.9 pg (27.0-33.0); MEAN CORPUSCULAR HGB CONC 31.8 g/dl (32.0-36.5); MEAN CORPUSCULAR VOLUME 97.2 fl (80.0-96.0); PLATELET COUNT, AUTOMATED 315 10^3/uL (150-450); RED BLOOD COUNT 3.98 10^6/uL (4.00-5.40); WHITE BLOOD COUNT 5.2 10^3/uL (4.0-10.0)
[2023-02-07 10:30] LABS: ALBUMIN 3.4 G/DL (3.2-5.2); ALKALINE PHOSPHATASE 95 U/L (46-116); ALT/SGPT 44 U/L (7.0-40); AST/SGOT 21 U/L (<34); BILIRUBIN,TOTAL 0.6 MG/DL (0.3-1.2); BLOOD UREA NITROGEN 20 MG/DL (9-23); CALCIUM LEVEL 9.4 MG/DL (8.3-10.6); CARBON DIOXIDE LEVEL 29 MMOL/L (20-31); CHLORIDE LEVEL 107 MMOL/L (98-107); CHOLESTEROL LEVEL 159 MG/DL (<200); CHOLESTEROL RISK RATIO 2.72 (<5); CREATININE FOR GFR 0.62 MG/DL (0.55-1.30); GLOMERULAR FILTRATION RATE > 60.0 (>45); GLUCOSE, FASTING 94 MG/DL (74-106); HDL CHOLESTEROL 58.4 MG/DL (>40); LDL CHOLESTEROL 84.4 MG/DL (<100); NON-HDL-C 100.6 MG/DL; SODIUM LEVEL 143 MMOL/L (136-145); TOTAL PROTEIN 5.9 G/DL (5.7-8.2); TRIGLYCERIDES LEVEL 81 MG/DL (<150)
== END ==
LOC: M LAB 09:00
PROVIDERS: ATTEND Family Medicine
DX: Z13.220 Encounter for screening for lipoid disorders (principal); E78.00 Pure hypercholesterolemia, unspecified

== ENCOUNTER 2023-02-18 08:24 | Day surgery (SDC) | payer MEDICARE ==
[~2023-02-18] VITALS: Ht 154.9 cm; Wt 85.3 kg
[~2023-02-18 08:24] MED LIST changes: +LIDOCAINE 2% 100MG/5ML SDV (FOR ANES.) As Ordered ONE; +NS 1,000 ML IV ONE; +propofoL 200 MG/20 ML VIAL As Ordered ONE
[2023-02-18] MEDS ORDERED: KETAMINE HCL 200MG/20ML VIAL As Ordered ONE (08:52)
[2023-02-18] MEDS ORDERED: MIDAZOLAM INJ 2MG/2ML VIAL As Ordered ONE ×2 (09:25→10:06)
[2023-02-18] MEDS ORDERED: fentaNYL 100 MCG/2 ML INJECTION As Ordered ONE (09:25)
[2023-02-18 11:46] VITALS: BP 91/52; TEMP 97.8; O2SAT 96
== END 2023-02-18 11:49 | disposition home or self-care (01) ==
LOC: M OPP 08:24
PROVIDERS: ATTEND Internal Medicine Gastroenterology
DX: Z86.010 Personal history of colon polyps (principal); D12.0 Benign neoplasm of cecum; K57.30 Diverticulosis of large intestine without perforation or abscess without bleeding; G47.30 Sleep apnea, unspecified; Z99.89 Dependence on other enabling machines and devices; Z79.1 Long term (current) use of non-steroidal anti-inflammatories (NSAID); Z79.51 Long term (current) use of inhaled steroids; Z88.2 Allergy status to sulfonamides; Z88.6 Allergy status to analgesic agent; Z88.8 Allergy status to other drugs, medicaments and biological substances; Z91.018 Allergy to other foods; Z91.040 Latex allergy status
CPT/HCPCS: 45380; 45385; 88305; J2250; J3010

== ENCOUNTER → 2023-06-10 | Outpatient (CLI) | payer MEDICARE ==
[~2023-06-10] MED LIST changes: -LIDOCAINE 2% 100MG/5ML SDV (FOR ANES.) As Ordered ONE; +MULT18TA PO; -NS 1,000 ML IV ONE; -ONE-1TAB PO; -propofoL 200 MG/20 ML VIAL As Ordered ONE
== END ==
LOC: M PLALAB 15:22
PROVIDERS: ATTEND Family Medicine
DX: R35.89 Other polyuria (principal); Z79.899 Other long term (current) drug therapy

== ENCOUNTER → 2023-12-02 | Outpatient (CLI) | payer MEDICARE | LOC: M WHC 14:08 | PROVIDERS: ATTEND Nurse Practitioner Family | DX: Z12.31 Encounter for screening mammogram for malignant neoplasm of breast (principal); R92.323 Mammographic fibroglandular density, bilateral breasts ==

== ENCOUNTER → 2024-01-03 | Outpatient (CLI) | payer MEDICARE ==
[2024-01-03 18:17] LABS: HEMATOCRIT 41.3 % (36.0-47.0); HEMOGLOBIN 12.7 g/dl (12.0-15.5); MEAN CORPUSCULAR HEMOGLOBIN 30.6 pg (27.0-33.0); MEAN CORPUSCULAR HGB CONC 30.8 g/dl (32.0-36.5); MEAN CORPUSCULAR VOLUME 99.5 fl (80.0-96.0); PLATELET COUNT, AUTOMATED 314 10^3/uL (150-450); RED BLOOD COUNT 4.15 10^6/uL (4.00-5.40); WHITE BLOOD COUNT 6.4 10^3/uL (4.0-10.0)
[2024-01-03 18:52] LABS: BLOOD UREA NITROGEN 16 MG/DL (9-23); CALCIUM LEVEL 8.8 MG/DL (8.3-10.6); CARBON DIOXIDE LEVEL 27 MMOL/L (20-31); CHLORIDE LEVEL 111 MMOL/L (98-107); CREATININE FOR GFR 0.77 MG/DL (0.55-1.30); GLOMERULAR FILTRATION RATE > 60.0 (>45); GLUCOSE, FASTING 171 MG/DL (74-106); POTASSIUM SERUM 5.2 MMOL/L (3.5-5.1); SODIUM LEVEL 142 MMOL/L (136-145)
== END ==
LOC: M PLALAB 15:05
PROVIDERS: ATTEND Student in an Organized Health Care Education/Training Program
DX: Z01.818 Encounter for other preprocedural examination (principal)

== ENCOUNTER → 2024-02-28 | Outpatient (CLI) | payer MEDICARE ==
[~2024-02-28] MED LIST changes: -ADV250INH INH; +ADVA1AER9 INH; -CITRTAB10 PO; +CITRTAB11 PO
[2024-02-28 16:09] LABS: HEMATOCRIT 40.7 % (36.0-47.0); HEMOGLOBIN 12.8 g/dl (12.0-15.5); MEAN CORPUSCULAR HEMOGLOBIN 30.6 pg (27.0-33.0); MEAN CORPUSCULAR HGB CONC 31.4 g/dl (32.0-36.5); MEAN CORPUSCULAR VOLUME 97.4 fl (80.0-96.0); PLATELET COUNT, AUTOMATED 440 10^3/uL (150-450); RED BLOOD COUNT 4.18 10^6/uL (4.00-5.40); WHITE BLOOD COUNT 9.3 10^3/uL (4.0-10.0)
[2024-02-28 16:39] LABS: ALBUMIN 3.5 G/DL (3.2-5.2); ALKALINE PHOSPHATASE 139 U/L (35-104); ALT/SGPT 27 U/L (7.0-40); AST/SGOT 17 U/L (<34); BILIRUBIN,TOTAL 0.4 MG/DL (0.3-1.2); BLOOD UREA NITROGEN 17 MG/DL (9-23); CALCIUM LEVEL 9.6 MG/DL (8.3-10.6); CARBON DIOXIDE LEVEL 31 MMOL/L (20-31); CHLORIDE LEVEL 103 MMOL/L (98-107); CHOLESTEROL LEVEL 198 MG/DL (<200); CHOLESTEROL RISK RATIO 2.83 (<5); CREATININE FOR GFR 0.76 MG/DL (0.55-1.30); GLOMERULAR FILTRATION RATE > 60.0 (>45); GLUCOSE, FASTING 97 MG/DL (74-106); HDL CHOLESTEROL 69.9 MG/DL (>40); LDL CHOLESTEROL 98.7 MG/DL (<100); NON-HDL-C 128.1 MG/DL; POTASSIUM SERUM 4.9 MMOL/L (3.5-5.1); SODIUM LEVEL 141 MMOL/L (136-145); TOTAL PROTEIN 6.9 G/DL (5.7-8.2); TRIGLYCERIDES LEVEL 147 MG/DL (<150)
[2024-02-28 16:41] LABS: HEMOGLOBIN A1c 5.5 % (4.0-6.0); TOTAL 25(OH) VITAMIN D 71.8 NG/ML (20.0-100.0)
== END ==
LOC: M PLALAB 12:07
PROVIDERS: ATTEND Family Medicine
DX: Z13.1 Encounter for screening for diabetes mellitus (principal); E78.00 Pure hypercholesterolemia, unspecified

== ENCOUNTER → 2024-08-23 | Outpatient (CLI) | payer MEDICARE | LOC: M PLAIMG 11:03 | PROVIDERS: ATTEND Family Medicine | DX: J45.909 Unspecified asthma, uncomplicated (principal) ==

== ENCOUNTER → 2024-08-31 | Outpatient (CLI) | payer MEDICARE | LOC: M WHC 17:18 | PROVIDERS: ATTEND Family Medicine | DX: Z12.31 Encounter for screening mammogram for malignant neoplasm of breast (principal) ==

== ENCOUNTER → 2024-12-26 | Outpatient (CLI) | payer MEDICARE ==
[~2024-12-26] MED LIST changes: +ACET-1592 PO; -ACET1TAB37 PO
== END ==
LOC: M WHC 10:30
PROVIDERS: ATTEND Family Medicine
DX: Z12.31 Encounter for screening mammogram for malignant neoplasm of breast (principal); R92.323 Mammographic fibroglandular density, bilateral breasts